=== PATIENT | female | born 1975 | race Caucasian/White ===

== ENCOUNTER 2020-06-30 08:10 | Day surgery (SDC) | payer OTHER, SELFPAY ==
--- NOTE | 2020-06-29 09:13 | P.CONAN_ITS ---
Documented by User: Shea Guevara 06/29/20 09:14 HPI - Anesthesia Eval Consult details Narrative: 44yo F for Colonoscopy [facility] Past Medical History Medical History Asthma Back pain Bronchitis Elevated cholesterol GERD (gastroesophageal reflux disease) Lab test positive for detection of COVID-19 virus Surgical History Surgical History H/O colonoscopy Social History Social History (Updated 06/23/20 @ 14:43 by Yenifer Soliz) Smoking Status: Never smoker Use of substances other than those prescribed or required for medical reasons: No Advance Directives: No Advance Directives Information Provided: Yes Recently lost weight without trying: No Meds Allergies Allergy/AdvReac Type Severity Reaction Status Date / Time No Known Allergies Allergy Verified 06/23/20 14:42 Home Medications Medication Instructions Recorded Confirmed Type budesonide-formoterol [Symbicort] 2 puff INHALATION BID 06/23/20 06/23/20 History Exam Exam Date and Time: June 29, 2020912 Pertinent Lab Results Pertinent Lab Results: Laboratory Tests 03/02/20 03/02/20 09:14 09:14 WBC 10.1 Hgb 12.5 Hct 39.0 Plt Count 273 Sodium 138 Potassium 4.5 Chloride 102 BUN 12 Creatinine 0.76 Assessment and Plan Assessment Anesthesia Assessment: Chart Reviewed Documented by User: Paulo Valdovinos MD 06/30/20 09:14 [facility] Past Medical History Medical History Asthma Back pain Bronchitis Elevated cholesterol GERD (gastroesophageal reflux disease) Lab test positive for detection of COVID-19 virus Surgical History Surgical History H/O colonoscopy Social History Social History (Updated 06/23/20 @ 14:43 by Yenifer Soliz) Smoking Status: Never smoker Use of substances other than those prescribed or required for medical reasons: No Advance Directives: No Advance Directives Information Provided: Yes Recently lost weight without trying: No Meds Allergies Allergy/AdvReac Type Severity Reaction Status Date / Time No Known Allergies Allergy Verified 06/23/20 14:42 Home Medications Medication Instructions Recorded Confirmed Type budesonide-formoterol [Symbicort] 2 puff INHALATION BID 06/23/20 06/23/20 History Exam Airway Mallampati Class: II TM Dist: >3cm Neck ROM: Full Loose/Missing/Broken Teeth: No Heart: rrr Lungs: nl Other: ao Assessment and Plan Assessment Anesthesia Assessment: Anesthesia Plan Discussed and Chart Reviewed Final Anesthetic Review ASA Class: II Final Preanesthetic Review: No Changes in Pt Med Stat, Meds/Allgs Chart Reviewed, Consent Obtained/Reviewed and Anes Risks/Benef Reviewed Patient Risk: Low Procedure Risk: Low Anesthetic Plan Anesthetic Plan: MAC: Disposition: Standard PACU
[2020-06-30 08:55] VITALS: BMI 25.8
--- NOTE | 2020-06-30 09:00 | MHC.SHP ---
Pre-Procedural Eval Section B Chief Complaint: Adenoma of Large Intestine, Hx of Colon Cancer Details of Present Illness: mother with CRC Relevant Family History (Specify if Yes): Yes Relevant Social History: None Present Medications: see Short Stay Collaborative assessment Medical History: Significant History (asthma, HLP, goiter, ) History of Previous Operations: Relevant previous surgery/procedure and date(s) (colonoscopy) Allergies: Allergies Allergy/AdvReac Type Severity Reaction Status Date / Time No Known Allergies Allergy Verified 06/23/20 14:42 Review of Systems Sugical H&P ROS: Negative: Constitution, Cardiovascular, Respiratory, Neurological, Psychiatric, Hem-Onc, Allergic/Immunologic, Gastrointestinal, Genitourinary, Musculoskeletal, Integumentary, Endocrine and Eyes/Ears/Nose/Throat Exam Surgical H&P Exam: Normal: HEENT, Normal: Heart, Normal: Lungs, Normal: Extremities, Normal: Abdomen, Normal: Skin and Normal: Neurological Plan Diagnosis/Plan: Unchanged Patient has been examined and remains a candidate for the planned procedure
[2020-06-30 09:06] VITALS: BP 110/69; PULSE 101; RESP 16; TEMP 36.7; O2SAT 99
--- NOTE | 2020-06-30 09:09 | PM.OP ---
Brief Operative Note Date of Service: 06/30/20 Pre-op diagnosis: FH CRC and polyps Post-op diagnosis: same Procedure: see op note Surgeon: Maulik Andino MD Anesthesia: MAC Estimated blood loss (mL): 0 Condition: stable Disposition: PACU
--- NOTE | 2020-06-30 09:10 | P.OP_ITS ---
Operative Note Operative Note Date of Service: 06/30/20 Narrative: Operative Information Procedure Description: Colonoscopy COLONOSCOPY Instrument: Olympus variable stiffness pediatric scope 190L Colonoscopy Monitoring: Vital signs and clinical assessment, continuous EKG monitoring, Pulse oximetry, Carbon Dioxide monitoring and blood pressure monitoring were done throughout the procedure. Colon withdrawal time was 9 minutes. Procedure: The patient was placed in the left lateral decubitis position and pre-procedure medications were administered. After a digital rectal examination of the ano-rectum, the video colonoscope was inserted into the rectum and advanced through the colon to the cecum/TI. The colonoscope was slowly withdrawn in a retrograde panoramic fashion and the colon mucosa was carefully examined including a retroflexed view of the rectum. Findings and interventions are described below. Procedure Difficulty: easy Findings: Terminal Ileum-normal Cecum:normal Ascending Colon: normal, few diverticula seen Transverse Colon -normal Descending Colon:normal Sigmoid Colon: normal Rectum: Retroflexion with small internal hemorrhoids, grade I Anorectum - normal Colon preparation: [place] Bowel Preparation Scale Right colon; 3 Transverse colon: 3 Left colon; 3 (0 = Unprepared colon segment with mucosa not seen due to solid stool that cannot be cleared. 1 = Portion of mucosa of the colon segment seen, but other areas of the colon segment not well seen due to staining, residual stool and/or opaque liquid. 2 = Minor amount of residual staining, small fragments of stool and/or opaque liquid, but mucosa of colon segment seen well. 3 = Entire mucosa of colon segment seen well with no residual staining, small fragments of stool or opaque liquid) Impression and Post Procedure Diagnosis: diverticulosis internal hemorrhoids Plan: High fiber diet leaflet Avoid straining at stool, epsom salts and sitz bath, anusol supps or cream Repeat Colonoscopy in 5 years or earlier if clinically indicated Above findings were reviewed with the patient and relevant handouts were provided if indicated.
[2020-06-30 09:11] LABS: UPreg QC Valid YES; Urine Pregnancy NEGATIVE (NEGATIVE)
[2020-06-30] MEDS: Lactated Ringers 1,000 ML 100 ML IVCONT (09:13)
--- NOTE | 2020-06-30 09:19 | PC.NURSE ---
patient took her own inhaler per md espinal. lungs clear
[2020-06-30 09:57] VITALS: BP 114/65; PULSE 86; RESP 16; TEMP 36.2; O2SAT 97
[2020-06-30 10:13] VITALS: BP 122/73; PULSE 78; RESP 16; TEMP 36.3; O2SAT 100
== END 2020-06-30 10:35 | disposition home or self-care (01) ==
PROVIDERS: Nurse Practitioner; PCP Internal Medicine; Visit Provider Internal Medicine Gastroenterology
PROC: 0DJD8ZZ Inspection of Lower Intestinal Tract, Via Natural or Artificial Opening Endoscopic (ICD-10-PCS; CPT 45378; principal; 2020-06-30 09:30)
DX: Z12.11 Encounter for screening for malignant neoplasm of colon (principal); Z86.010 Personal history of colon polyps; Z80.0 Family history of malignant neoplasm of digestive organs; K57.30 Diverticulosis of large intestine without perforation or abscess without bleeding; K64.0 First degree hemorrhoids; K21.9 Gastro-esophageal reflux disease without esophagitis; J45.909 Unspecified asthma, uncomplicated; E78.5 Hyperlipidemia, unspecified; E04.2 Nontoxic multinodular goiter; Z79.51 Long term (current) use of inhaled steroids
CPT/HCPCS: 45378; 81025

== ENCOUNTER → 2020-07-11 12:26 | Outpatient (BNVA) | payer OTHER, SELFPAY | PROVIDERS: PCP Internal Medicine; Referring Provider Internal Medicine; Visit Provider Physician Assistant | DX: Z76.89 Persons encountering health services in other specified circumstances (principal) ==

== ENCOUNTER 2020-08-11 07:02 | Outpatient (REF) | payer OTHER, SELFPAY ==
[2020-08-11 07:21] LABS: COVID-19 Test Negative (Negative); IDNOW Serial# 55D5AD1C
== END 2020-08-11 07:03 | disposition home or self-care (01) ==
LOC: HO.EMPCOV 07:02
PROVIDERS: PCP Internal Medicine; Visit Provider Internal Medicine
DX: Z20.828 Contact with and (suspected) exposure to other viral communicable diseases (principal)
CPT/HCPCS: 87635; C9803

== ENCOUNTER 2020-09-22 09:42 | Outpatient (REF) | payer OTHER, SELFPAY ==
[2020-09-22 10:02] LABS: Hematocrit 39.7 % (37-47); Hemoglobin 13.2 g/dl (12.0-16.0); Mean Corpuscular HGB Conc 33.2 g/dl (31.0-35.0); Mean Corpuscular Hemoglobin 30.1 pg (27.0-33.0); Mean Corpuscular Volume 90.4 fL (80-98); Mean Platelet Volume 9.5 fL (9.4-12.3); Platelet Count 310 X10*3/uL (160-400); Red Blood Count 4.39 X10*6/uL (4.20-5.50); Red Cell Distribution Width 12.6 % (11.0-16.0); White Blood Count 9.2 X10*3/uL (4.8-10.8)
[2020-09-22 10:56] LABS: Alanine Aminotransferase 18 U/L (0-31); Albumin Level 4.3 g/dL (3.5-5.0); Alkaline Phosphatase 84 U/L (39-117); Anion Gap 14 (12-20); Aspartate Amino Transferase 19 U/L (5-31); Bilirubin Total 0.5 mg/dL (0.0-1.0); Blood Urea Nitrogen 10 mg/dL (9-16); Calcium 9.5 mg/dL (8.4-10.2); Carbon Dioxide 24 mmol/L (22-29); Chloride 106 mmol/L (96-108); Cholesterol 249 mg/dL; Estimated Glomerular Filt Rate > 60; Glucose Fasting 96 mg/dL (60-99); HDL Cholesterol 60 mg/dL; LDL Cholesterol Calculated 174 mg/dl; Potassium 4.3 mmol/L (3.3-5.1); Sodium 140 mmol/L (135-145); Total Protein 7.6 g/dL (6.5-8.0); Triglycerides 77 mg/dL
[2020-09-22 11:17] LABS: Thyroid Stimulating Hormone 3.26 uIU/mL (0.32-4.0)
[2020-09-22 12:57] LABS: Glucose Urine UA NEG (NEG); Leukocyte Esterase Urine 1+ (NEG); Nitrite Urine NEG (NEG); Urine Blood NEG (NEG); Urine Ketones 5 MG/DL (NEG); Urine Protein NEG (NEG-TRACE)
[2020-09-22 13:05] LABS: Appearance Urine HAZY; Color Urine YELLOW
[2020-09-22 13:34] LABS: Bacteria Urine 2+ /LPF; RBC Urine 0-2 /HPF (0); Squamous Epithelial Cell Urine 4+ /LPF
== END 2020-09-22 09:43 | disposition home or self-care (01) ==
LOC: HO.10HDL 09:42
PROVIDERS: Visit Provider Internal Medicine
DX: Z00.00 Encounter for general adult medical examination without abnormal findings (principal)
CPT/HCPCS: 36415; 80053; 80061; 81001; 81003; 84443; 85027

== ENCOUNTER 2020-10-10 08:43 | Outpatient (REF) | payer OTHER, SELFPAY ==
[2020-10-10 09:08] LABS: COVID-19 Test Negative (Negative)
== END 2020-10-10 08:44 | disposition home or self-care (01) ==
LOC: HO.EMPCOV 08:43
PROVIDERS: Visit Provider Internal Medicine
DX: Z20.822 Contact with and (suspected) exposure to COVID-19 (principal)
CPT/HCPCS: 36415; 87635; C9803

== ENCOUNTER 2020-11-09 14:09 | Outpatient (REF) | payer OTHER, SELFPAY ==
[2020-11-09 14:27] LABS: COVID-19 Test Negative (Negative); IDNOW Serial# 55D5AD1C
== END 2020-11-09 14:10 | disposition home or self-care (01) ==
LOC: HO.LAB 14:09
PROVIDERS: Visit Provider Internal Medicine
DX: Z20.822 Contact with and (suspected) exposure to COVID-19 (principal)
CPT/HCPCS: 36415; 87635; C9803

== ENCOUNTER 2020-11-11 08:02 | Outpatient (REF) | payer OTHER, SELFPAY ==
[2020-11-11 10:48] LABS: MANUAL DIFF FLAG NO
[2020-11-11 11:05] LABS: Basophils Absolute Auto 0.1 X10*3/uL (0.0-0.2); Basophils Percent Auto 0.5 % (0-2); Eosinophils Absolute Auto 0.3 X10*3/uL (0.0-0.4); Eosinophils Percent Auto 3.1 % (0-4); Hematocrit 37.7 % (37-47); Hemoglobin 12.2 g/dl (12.0-16.0); Imm Gran Abs Auto 0.05 X10*3/uL (0.00-0.03); Imm Gran Pct Auto 0.5 % (0.0-0.4); Lymphocytes Absolute Auto 1.7 X10*3/uL (1.2-4.9); Lymphocytes Percent Auto 18.9 % (20-40); Mean Corpuscular HGB Conc 32.4 g/dl (31.0-35.0); Mean Corpuscular Hemoglobin 30.2 pg (27.0-33.0); Mean Corpuscular Volume 93.3 fL (80-98); Mean Platelet Volume 10.3 fL (9.4-12.3); Monocytes Absolute Auto 0.6 X10*3/uL (0.1-1.2); Monocytes Percent Auto 6.2 % (2-11); Neutrophils Absolute Auto 6.5 X10*3/uL (2.0-8.3); Neutrophils Percent Auto 70.8 % (45-73); Platelet Count 299 X10*3/uL (160-400); Red Blood Count 4.04 X10*6/uL (4.20-5.50); Red Cell Distribution Width 12.6 % (11.0-16.0); White Blood Count 9.2 X10*3/uL (4.8-10.8)
[2020-11-11 11:29] LABS: Alanine Aminotransferase 25 U/L (0-31); Alkaline Phosphatase 77 U/L (39-117); Anion Gap 12 (12-20); Aspartate Amino Transferase 18 U/L (5-31); Bilirubin Total 0.2 mg/dL (0.0-1.0); Blood Urea Nitrogen 11 mg/dL (9-16); Calcium 8.9 mg/dL (8.4-10.2); Carbon Dioxide 27 mmol/L (22-29); Chloride 105 mmol/L (96-108); Cholesterol 198 mg/dL; Estimated Glomerular Filt Rate > 60; Glucose Fasting 101 mg/dL (60-99); HDL Cholesterol 60 mg/dL; LDL Cholesterol Calculated 126 mg/dl; Potassium 4.2 mmol/L (3.3-5.1); Sodium 140 mmol/L (135-145); Triglycerides 63 mg/dL
== END 2020-11-11 08:03 | disposition home or self-care (01) ==
LOC: HO.10HDL 08:02
PROVIDERS: Absent Provider Dermatology; Visit Provider Internal Medicine
DX: Z00.00 Encounter for general adult medical examination without abnormal findings (principal); E78.5 Hyperlipidemia, unspecified; R21 Rash and other nonspecific skin eruption; Z79.899 Other long term (current) drug therapy
CPT/HCPCS: 36415; 80053; 80061; 85025

== ENCOUNTER 2020-11-29 07:40 | Outpatient (REF) | payer OTHER, SELFPAY ==
[2020-11-29 08:06] LABS: COVID-19 Test Negative (Negative)
== END 2020-11-29 07:41 | disposition home or self-care (01) ==
LOC: HO.EMPCOV 07:40
PROVIDERS: Visit Provider Internal Medicine
DX: Z20.822 Contact with and (suspected) exposure to COVID-19 (principal)
CPT/HCPCS: 36415; 87635; C9803

== ENCOUNTER 2020-12-28 09:47 | Outpatient (REF) | payer OTHER, SELFPAY ==
--- NOTE | ~2020-12-28 | MM_ITS ---
EXAMINATION: MM SCREENING DIGITAL BREAST TOMOSYNTHESIS, BILATERAL CLINICAL INFORMATION: Screening. Asymptomatic. The lifetime risk of breast cancer based on the Tyrer-Cuzick Model is 12.9%. COMPARISON: Mammography: October 01, 2019 and studies dating back to March 07, 2016 TECHNIQUE: Digital breast tomosynthesis is performed in both the craniocaudal and mediolateral oblique views along with computer-aided detection (CAD). Synthesized 2D images are generated from the tomosynthesis. FINDINGS: The breasts are heterogeneously dense, which may obscure small masses (ACR BI-RADS breast composition Category c). No new abnormal dominant mass is identified. The calcifications within the upper outer aspect of the right breast are seen to change configuration between craniocaudal and mediolateral oblique projections consistent with milk of calcium within microcysts. No new region of architectural distortion appreciated. MM/MM tomosynthesis screening BI IMPRESSION: There are no significant changes from prior study. ASSESSMENT: BI-RADS 1: Negative RECOMMENDATION: Routine annual mammography screening. This patient's information was entered into a reminder system with a target due date for their next mammogram.
== END 2020-12-28 09:48 | disposition home or self-care (01) ==
LOC: HO.MAMMO 09:47
PROVIDERS: PCP Internal Medicine; Visit Provider Internal Medicine
DX: Z12.31 Encounter for screening mammogram for malignant neoplasm of breast (principal)
CPT/HCPCS: 77063; 77067

== ENCOUNTER 2021-02-01 17:00 | Outpatient (RCR) | payer OTHER, SELFPAY ==
--- NOTE | 2020-12-05 08:39 | MHC.PT.EP ---
[facility] [place] Office [place] Office [place] Office [address] [phone] F: [phone] F: [phone] F: [phone] F: [phone] Physical Therapy Plan of Care Date of Evaluation: Date of Surgery: Diagnosis: L side sciatica Assessment: Pt is a 44 y/o female referred to PT for eval and treat of L leg sciatica who presents with signs and Sx consistent with lumbopelvic dysfunction resulting in decreased tolerance for walking long distances, sitting tasks for duration as well as squatting activities secondary to decreased hip and core strength, decreased trunk ROM as well as decreased posture, increased tissue tension, pelvic asymmetry and pain. Pt is deemed an appropriate candidate to receive skilled PT in order to address her physical limitations to improve her functional ability. Frequency and Duration: The patient will be seen 2 x/ wk x 5 wks. Short Term Goals: In 1 week: initiate HEP with evidence of compliance. In 3 weeks: abolish LE radicular Sx. Fpc Goals: In 5 weeks: I with HEP. In 5 weeks; Pt will be able to tolerate sitting tasks for preferred duration with managed Sx. In 5 weeks: Pt will report no longer painful of squatting tasks. Treatment Plan: Modalities to reduce pain, spasms and effusion. Manual therapy to restore motion and function. Therapeutic exercise to improve strength and flexibility. Neuromuscular re-education for posture and balance. Therapeutic activities to return to functional activities of daily living. Electronically signed by: Sylvester Fox PT. Please sign and return to therapist. Thank you for your referral.
== END 2021-04-21 14:04 | disposition home or self-care (01) ==
LOC: HO.PTCHIC 17:00
PROVIDERS: PCP Internal Medicine; Visit Provider Internal Medicine
DX: M54.30 Sciatica, unspecified side (principal)
CPT/HCPCS: 97110; 97140; 97161

== ENCOUNTER 2021-02-14 17:20 | Outpatient (REF) | payer OTHER, SELFPAY | END 2021-02-14 17:21 | disposition home or self-care (01) | LOC: HO.LAB 17:20 | PROVIDERS: Visit Provider Nurse Practitioner Family | DX: N39.0 Urinary tract infection, site not specified (principal) | CPT/HCPCS: 87086 ==

== ENCOUNTER 2021-05-18 07:20 | Outpatient (REF) | payer OTHER, SELFPAY ==
[2021-05-18 11:53] LABS: Alanine Aminotransferase 51 U/L (0-31); Albumin Level 4.1 g/dL (3.5-5.0); Alkaline Phosphatase 87 U/L (39-117); Anion Gap 14 (12-20); Aspartate Amino Transferase 32 U/L (5-31); Bilirubin Total 0.5 mg/dL (0.0-1.0); Blood Urea Nitrogen 9 mg/dL (9-16); Carbon Dioxide 22 mmol/L (22-29); Chloride 107 mmol/L (96-108); Cholesterol 207 mg/dL; Estimated Glomerular Filt Rate > 60; Glucose Fasting 111 mg/dL (60-99); HDL Cholesterol 61 mg/dL; LDL Cholesterol Calculated 125 mg/dl; Potassium 3.9 mmol/L (3.3-5.1); Sodium 139 mmol/L (135-145); Total Protein 7.3 g/dL (6.5-8.0); Triglycerides 105 mg/dL
[2021-05-18 11:55] LABS: Hematocrit 40.4 % (37-47); Hemoglobin 13.1 g/dl (12.0-16.0); Mean Corpuscular HGB Conc 32.4 g/dl (31.0-35.0); Mean Corpuscular Hemoglobin 30.2 pg (27.0-33.0); Mean Corpuscular Volume 93.1 fL (80-98); Mean Platelet Volume 10.7 fL (9.4-12.3); Platelet Count 340 X10*3/uL (160-400); Red Blood Count 4.34 X10*6/uL (4.20-5.50); Red Cell Distribution Width 13.1 % (11.0-16.0); White Blood Count 8.8 X10*3/uL (4.8-10.8)
[2021-05-18 12:13] LABS: TSH reflex Free T4 2.75 uIU/mL (0.32-4.0)
== END 2021-05-18 07:21 | disposition home or self-care (01) ==
LOC: HO.HMGCLDS 07:20
PROVIDERS: PCP Internal Medicine; Visit Provider Internal Medicine
DX: Z00.00 Encounter for general adult medical examination without abnormal findings (principal); E78.5 Hyperlipidemia, unspecified; M54.30 Sciatica, unspecified side
CPT/HCPCS: 36415; 80053; 80061; 84443; 85027

== ENCOUNTER 2021-10-03 07:25 | Outpatient (REF) | payer OTHER, SELFPAY ==
[2021-10-03 11:42] LABS: Appearance Urine TURBID; Color Urine YELLOW; Glucose Urine UA NEG (NEG); Leukocyte Esterase Urine NEG (NEG); Nitrite Urine NEG (NEG); PH 5.5 (5.0-8.0); Specific Gravity - Urine >= 1.030 (1.005-1.025); Urine Blood 2+ (NEG); Urine Ketones NEG (NEG); Urine Protein NEG (NEG-TRACE)
[2021-10-03 11:45] LABS: Hematocrit 38.6 % (37.0-47.0); Hemoglobin 12.6 g/dl (12.0-16.0); Mean Corpuscular HGB Conc 32.6 g/dl (31.0-35.0); Mean Corpuscular Hemoglobin 30.7 pg (27.0-33.0); Mean Corpuscular Volume 93.9 fL (80.0-98.0); Mean Platelet Volume 10.5 fL (9.4-12.3); Platelet Count 327 X10*3/uL (160-400); Red Blood Count 4.11 X10*6/uL (4.20-5.50); Red Cell Distribution Width 12.7 % (11.0-16.0); White Blood Count 7.8 X10*3/uL (4.8-10.8)
[2021-10-03 12:02] LABS: Amorphous Sediment Urine 4+ /LPF
[2021-10-03 12:04] LABS: RBC Urine 0 /HPF (0); Squamous Epithelial Cell Urine 3+ /LPF; WBC Urine 0-2 /HPF (0-4)
[2021-10-03 12:06] LABS: Mucus Urine 1+ /LPF
[2021-10-03 12:22] LABS: TSH reflex Free T4 3.07 uIU/mL (0.32-4.0)
[2021-10-03 12:32] LABS: Alanine Aminotransferase 21 U/L (0-31); Albumin Level 4.1 g/dL (3.5-5.0); Alkaline Phosphatase 74 U/L (39-117); Anion Gap 13 (12-20); Aspartate Amino Transferase 18 U/L (5-31); Bilirubin Total 0.4 mg/dL (0.0-1.0); Blood Urea Nitrogen 8 mg/dL (9-16); Calcium 8.7 mg/dL (8.4-10.2); Carbon Dioxide 23 mmol/L (22-29); Chloride 109 mmol/L (96-108); Cholesterol 237 mg/dL; Estimated Glomerular Filt Rate > 60; Glucose Fasting 98 mg/dL (60-99); HDL Cholesterol 59 mg/dL; LDL Cholesterol Calculated 157 mg/dl; Potassium 3.7 mmol/L (3.3-5.1); Sodium 141 mmol/L (135-145); Total Protein 7.3 g/dL (6.5-8.0); Triglycerides 109 mg/dL
== END 2021-10-03 07:26 | disposition home or self-care (01) ==
LOC: HO.HMGCLDS 07:25
PROVIDERS: Visit Provider Internal Medicine
DX: Z00.00 Encounter for general adult medical examination without abnormal findings (principal); E78.5 Hyperlipidemia, unspecified
CPT/HCPCS: 36415; 80053; 80061; 81001; 84443; 85027

== ENCOUNTER 2021-10-30 10:06 | Outpatient (REF) | payer OTHER, SELFPAY ==
--- NOTE | ~2021-10-30 | US_ITS ---
EXAMINATION: US THYROID CLINICAL INFORMATION: Nontoxic single thyroid nodule. COMPARISON: None TECHNIQUE: Linear transducer grayscale and color Doppler examination with attention to the region of the thyroid. FINDINGS: SIZE: Measurements of the thyroid lobes and nodules are given in sagittal, anteroposterior and transverse dimensions respectively. Right Thyroid Lobe: 6.47 x 3.78 x 3.64 cm, volume 46.6 mL. Parenchyma: The gland echotexture is heterogeneous. Thyroid vascularity is normal. Left Thyroid Lobe: 5.89 x 3.01 x 1.19 cm, volume 11.03 mL. Parenchyma: The gland echotexture is heterogeneous. Thyroid vascularity is normal. Isthmus: 1.1 cm in maximum AP dimension. Estimated total number of nodules greater than or equal to 1 cm: 6 to 10. Senior Cost Estimator nodules are described as follows: 1. Location: Right superior. Size: 3.1 x 2.0 x 2.4 cm, volume 7.77 mL. Nodule characteristics: Composition: Solid/almost completely solid (2). Echogenicity: Hypoechoic (2). Shape: Not taller than wide (0). Margins: Smooth (0). Echogenic Foci: Punctate echogenic foci (3). ACR TI-RADS total points: 7 ACR TI-RADS category: 5 2. Location: Right superior. Size: 1.6 x 1.7 x 1.6 cm, volume 2.2 mL. Nodule characteristics: Composition: Solid/almost completely solid (2). Echogenicity: Hypoechoic (2). Shape: Taller than wide (3). Margins: Smooth (0). Echogenic Foci: Punctate echogenic foci (3). ACR TI-RADS total points: 10 ACR TI-RADS category: 5 3. Location: Right mid. Size: 4.0 x 2.2 x 2.4 cm, volume 10.7 mL. Nodule characteristics: Composition: Solid/almost completely solid (2). Echogenicity: Isoechoic (1). Shape: Not taller than wide (0). Margins: Smooth (0). Echogenic Foci: Punctate echogenic foci (3). ACR TI-RADS total points: 6 ACR TI-RADS category: 4 4. Location: Right inferior. Size: 2.4 x 2.2 x 3.2 cm, volume 8.9 mL. Nodule characteristics: Composition: Mixed cystic and solid (1). Echogenicity: Isoechoic (1). Shape: Not taller than wide (0). Margins: Smooth (0). Echogenic Foci: None (0). ACR TI-RADS total points: 2 ACR TI-RADS category: 2 5. Location: Left inferior. Size: 3.5 x 2.2 x 2.0 cm, volume 7.9 mL. Nodule characteristics: Composition: Solid/almost completely solid (2). Echogenicity: Hypoechoic (2). Shape: Taller than wide (3). Margins: Smooth (0). Echogenic Foci: Punctate echogenic foci (3). ACR TI-RADS total points: 10 ACR TI-RADS category: 5 NODES: No lymphadenopathy is seen in the tissue surrounding the thyroid gland. US/US thyroid IMPRESSION: Enlarged heterogeneous thyroid gland. Multiple bilateral thyroid nodules. 4 of the 5 above nodules meet the TI RADS criteria for fine-needle aspiration. Comparison with outside imaging recommended. ACR TI-RADS RECOMMENDATION REFERENCE: Ultrasound-guided fine-needle aspiration, followup ultrasound, no further follow up. * TR1 (0 point) and TR 2 (2 points): No FNA or follow up * TR3 (3 points): FNA if more than or equal to 2.5 cm in maximum dimension, followup ultrasound in 1, 3 and 5 years if 1.5 to 2.4 cm in maximum dimension. * TR4 (4-6 points): FNA if more than or equal to 1.5 cm in maximum dimension, followup ultrasound in 1, 2, 3 and 5 years if 1 to 1.4 cm in maximum dimension. * TR5 (more than or equal to 7 points): FNA if more than or equal to 1 cm in maximum dimension, followup ultrasound every year for 5 years if 0.5 to 0.9 cm in maximum dimension. * TR3, TR4 or TR5 nodules that are below the size threshold for follow up receive no follow up.
== END 2021-10-30 10:07 | disposition home or self-care (01) ==
LOC: HO.HMGCX 10:06
PROVIDERS: PCP Internal Medicine; Visit Provider Internal Medicine
DX: E04.1 Nontoxic single thyroid nodule (principal)
CPT/HCPCS: 76536

== ENCOUNTER 2022-01-20 10:29 | Outpatient (REF) | payer OTHER, SELFPAY ==
--- NOTE | ~2022-01-20 | MM_ITS ---
EXAMINATION: MM SCREENING DIGITAL BREAST TOMOSYNTHESIS, BILATERAL CLINICAL INFORMATION: Screening. Asymptomatic. The lifetime risk of breast cancer based on the Tyrer-Cuzick Model is 11%. COMPARISON: Mammography: 12/28/2020, 10/09/2019, 10/06/2019, 09/04/2018; outside mammography 03/13/2017 ([facility]); ultrasound left breast 10/09/2019. TECHNIQUE: Digital breast tomosynthesis is performed in both the craniocaudal and mediolateral oblique views along with computer-aided detection (CAD). Synthesized 2D images are generated from the tomosynthesis. FINDINGS: The breasts are heterogeneously dense, which may obscure small masses (ACR BI-RADS breast composition Category c). Parenchymal pattern is similar to prior studies. No developing density or architectural abnormality. There are no significant masses, abnormal calcifications, or other abnormalities. Skin contours are smooth. No significant changes. MM/MM tomosynthesis screening BI IMPRESSION: No mammographic evidence of malignancy. ASSESSMENT: BI-RADS 1: Negative RECOMMENDATION: Routine annual mammography screening. This patient's information was entered into a reminder system with a target due date for their next mammogram.
== END 2022-01-20 10:30 | disposition home or self-care (01) ==
LOC: HO.MAMMO 10:29
PROVIDERS: PCP Internal Medicine; Visit Provider Internal Medicine
DX: Z12.31 Encounter for screening mammogram for malignant neoplasm of breast (principal)
CPT/HCPCS: 77063; 77067

== ENCOUNTER 2022-02-20 08:43 | Outpatient (REF) | payer OTHER, SELFPAY ==
[2022-02-20 09:17] LABS: Binax Internal Control QC Valid; Binax Now Covid-19 Ag Negative (Negative); Binax Performed by: HO.BONILM
== END 2022-02-20 08:44 | disposition home or self-care (01) ==
LOC: HO.HMGCLDS 08:43
PROVIDERS: Visit Provider Physician Assistant
DX: J02.9 Acute pharyngitis, unspecified (principal); Z20.822 Contact with and (suspected) exposure to COVID-19
CPT/HCPCS: 87811; C9803

== ENCOUNTER 2022-04-25 07:33 | Outpatient (REF) | payer OTHER, SELFPAY ==
[2022-04-25 12:09] LABS: Free T4 (Free Thyroxine) 0.84 ng/dL (0.71-1.85); Thyroid Stimulating Hormone 1.83 uIU/mL (0.32-4.0); Vitamin D 25-OH Total 33.2 ng/mL (>30)
== END 2022-04-25 07:34 | disposition home or self-care (01) ==
LOC: HO.HMGCLDS 07:33
PROVIDERS: PCP Internal Medicine; Visit Provider Internal Medicine
DX: E04.2 Nontoxic multinodular goiter (principal); E55.9 Vitamin D deficiency, unspecified
CPT/HCPCS: 36415; 82306; 84439; 84443

== ENCOUNTER 2022-06-28 07:38 | Outpatient (REF) | payer OTHER, SELFPAY ==
--- NOTE | 2022-06-28 08:49 | PM.OP ---
Brief Operative Note Date of Service: 06/28/22 Pre-op diagnosis: Multinodular Thyroid Procedure: This is doctor Porsha Lucas. This is an ultrasound-guided fine-needle aspiration report. Date of Examination: Indication: Multinodular Thyroid Porcedure: Procedure was explained to the patient. Alternatives, the risk and benefits were discussed. Written consent was obtained. A time-out was also obtained. After sterile preparation, fine-needle aspiration of a right mid pole 4.0 cm thyroid nodule was performed using direct ultrasound guidance to confirm accurate needle placement. Three aspirations were made using 27 gauge needles. Samples were submitted for cytology. One pass was dedicated for [employer] sequencing graduate engineer testing. Our attention was then turned to the Isthmus. Fine-needle aspiration of an isthmus 1.8 cm thyroid nodule was performed using direct ultrasound guidance to confirm accurate needle placement. Four aspirations were made using 27 gauge needles. An additional 2 aspirations were made using 25 guage needles. Samples were submitted for cytology. One pass was dedicated for [employer] Gene sequencing graduate engineer testing. The patient tolerated the procedure well. Aftercare instructions were provided. Impression: Uncomplicated fine needle aspiration biopsy of a right mid pole 4.0 cm thyroid nodule, and an isthmus 1.8 cm thyroid nodule under ultrasound guidance. Surgeon: Porsha Lucas, DO Was an Director Mobile used for this Procedure?: No Estimated blood loss (mL): 0
[2022-06-28] MEDS: Lidocaine HCl 1 % MPF 5 ML VIAL SUBCUT (09:47)
== END 2022-06-28 07:39 | disposition home or self-care (01) ==
LOC: HO.US 07:38
PROVIDERS: Visit Provider Internal Medicine
DX: E04.2 Nontoxic multinodular goiter (principal)
CPT/HCPCS: 10005; 10006; 88172; 88173; 88177; 88305

== ENCOUNTER 2022-07-11 15:52 | Outpatient (REF) | payer OTHER, SELFPAY ==
[2022-07-11 17:04] LABS: Albumin Level 4.3 g/dL (3.5-5.0); Phosphorus 3.5 mg/dL (2.7-4.5)
[2022-07-11 17:26] LABS: Vitamin D 25-OH Total 23.9 ng/mL (>30)
[2022-07-13 13:44] LABS: Calcium (PTHI) 9.4 mg/dL (8.6-10.2); PTHI 26 pg/mL (16-77)
== END 2022-07-11 15:53 | disposition home or self-care (01) ==
LOC: HO.LAB 15:52
PROVIDERS: PCP Internal Medicine; Visit Provider Internal Medicine
DX: E55.9 Vitamin D deficiency, unspecified (principal)
CPT/HCPCS: 36415; 82040; 82306; 83970; 84100

== ENCOUNTER 2022-07-20 07:11 | Outpatient (REF) | payer OTHER, SELFPAY ==
--- NOTE | ~2022-07-20 | CT_ITS ---
EXAMINATION: CT SOFT TISSUE NECK WITHOUT CONTRAST CLINICAL INFORMATION: Nontoxic multinodular goiter. COMPARISON: None TECHNIQUE: Helical imaging was performed in the axial plane with generation of coronal and sagittal reformatted images. This CT examination was performed using dose optimization techniques as appropriate, variously including the following: *Automated exposure control *Adjustment of mA and/or kV according to patient size (this includes techniques or standardized protocols for targeted exams where dose is matched to indication/reason for exam; i.e. extremities or head) *Use of iterative reconstruction technique DLP: 446 mGy-cm FINDINGS: There is a large heterogeneous goiter with scattered calcifications arising from the right lobe of the thyroid gland extending inferior to the mediastinum. The mediastinal component is only partially imaged but measures up to 6.8 x 6.5 cm. There is leftward displacement and mild flattening of the tracheal lumen without significant tracheal compression. Enlarged nodular components are also seen arising inferiorly from the left lobe of the thyroid gland extending into the upper mediastinum. The vasculature appears largely displaced around the goiter. The pharyngeal contours appear normal. No laryngeal lesion is seen. The parotid and submandibular glands appear normal. There is is an enlarged elongated left level 2A lymph node measuring 2.0 cm. There is an enlarged left level 5A lymph node measuring 1.3 cm and a top normal right level 5A lymph node measuring 9 mm. The imaged portions of the upper lungs are clear. Mild degenerative changes are seen in the spine. There is no acute intracranial abnormality. Prominent but nonenlarged lymph nodes are seen along the bilateral cervical stations. No calcified lymph nodes are seen. CT/CT soft tissue neck wo IV con IMPRESSION: 1. Large heterogeneous goiter arising from the right lobe of the thyroid gland extending inferior to the mediastinum. The mediastinal component is only partially imaged but measures up to 6.8 x 6.5 cm. There is leftward displacement and mild flattening of the tracheal lumen without significant tracheal compression. Dedicated chest CT is recommended to evaluate the inferior extent of the goiter. Consider obtaining the chest CT with contrast to evaluate the relationship of the goiter to the major intrathoracic vasculature. 2. Enlarged left level 2A and left level 5A lymph nodes measuring up to 2.0 cm and top normal right level 5A lymph node.
== END 2022-07-20 07:12 | disposition home or self-care (01) ==
LOC: HO.CT 07:11
PROVIDERS: PCP Internal Medicine; Visit Provider Internal Medicine
DX: E04.2 Nontoxic multinodular goiter (principal)
CPT/HCPCS: 70490

== ENCOUNTER 2022-10-06 11:01 | Outpatient (REF) | payer OTHER, SELFPAY ==
[2022-10-06 13:46] LABS: Vitamin D 25-OH Total 32.1 ng/mL (>30)
== END 2022-10-06 11:02 | disposition home or self-care (01) ==
LOC: HO.HMGCLDS 11:01
PROVIDERS: PCP Internal Medicine; Visit Provider Internal Medicine
DX: E55.9 Vitamin D deficiency, unspecified (principal)
CPT/HCPCS: 36415; 82306

== ENCOUNTER 2022-10-08 08:12 | Outpatient (REF) | payer OTHER, SELFPAY ==
[2022-10-08 11:58] LABS: MANUAL DIFF FLAG NO
[2022-10-08 12:15] LABS: Basophils Absolute Auto 0.1 X10*3/uL (0.0-0.2); Eosinophils Absolute Auto 0.3 X10*3/uL (0.0-0.4); Eosinophils Percent Auto 3.3 % (0-4); Hematocrit 38.6 % (37.0-47.0); Hemoglobin 12.6 g/dl (12.0-16.0); Imm Gran Abs Auto 0.03 X10*3/uL (0.00-0.03); Imm Gran Pct Auto 0.4 % (0.0-0.4); Lymphocytes Percent Auto 24.9 % (20-40); Mean Corpuscular HGB Conc 32.6 g/dl (31.0-35.0); Mean Corpuscular Hemoglobin 29.6 pg (27.0-33.0); Mean Corpuscular Volume 90.8 fL (80.0-98.0); Mean Platelet Volume 9.9 fL (9.4-12.3); Monocytes Absolute Auto 0.6 X10*3/uL (0.1-1.2); Monocytes Percent Auto 7.1 % (2-11); Neutrophils Percent Auto 63.3 % (45-73); Platelet Count 344 X10*3/uL (160-400); Red Blood Count 4.25 X10*6/uL (4.20-5.50); Red Cell Distribution Width 12.8 % (11.0-16.0); White Blood Count 7.9 X10*3/uL (4.8-10.8)
[2022-10-08 12:26] LABS: Alanine Aminotransferase 24 U/L (0-31); Albumin Level 4.2 g/dL (3.5-5.0); Alkaline Phosphatase 82 U/L (39-117); Anion Gap 9 (12-20); Aspartate Amino Transferase 19 U/L (5-31); Bilirubin Total 0.5 mg/dL (0.0-1.0); Blood Urea Nitrogen 8 mg/dL (9-16); Calcium 9.4 mg/dL (8.4-10.2); Carbon Dioxide 30 mmol/L (22-29); Chloride 105 mmol/L (96-108); Cholesterol 219 mg/dL; Estimated Glomerular Filt Rate > 60; Glucose Fasting 98 mg/dL (60-99); HDL Cholesterol 56 mg/dL; LDL Cholesterol Calculated 134 mg/dl; Sodium 140 mmol/L (135-145); Total Protein 7.4 g/dL (6.5-8.0); Triglycerides 148 mg/dL
== END 2022-10-08 08:13 | disposition home or self-care (01) ==
LOC: HO.HMGCLDS 08:12
PROVIDERS: PCP Internal Medicine; Visit Provider Internal Medicine
DX: Z00.00 Encounter for general adult medical examination without abnormal findings (principal); E78.5 Hyperlipidemia, unspecified
CPT/HCPCS: 36415; 80053; 80061; 85025

== ENCOUNTER 2022-11-07 06:40 | Outpatient (REF) | payer OTHER, SELFPAY ==
[2022-11-07 12:16] LABS: Blood Urea Nitrogen 10 mg/dL (9-16); Estimated Glomerular Filt Rate > 60
== END 2022-11-07 06:41 | disposition home or self-care (01) ==
LOC: HO.HMGCLDS 06:40
PROVIDERS: PCP Internal Medicine; Visit Provider Surgery
DX: E04.9 Nontoxic goiter, unspecified (principal)
CPT/HCPCS: 36415; 82565; 84520

== ENCOUNTER 2022-11-07 14:19 | Outpatient (REF) | payer OTHER, SELFPAY ==
--- NOTE | ~2022-11-07 | CT_ITS ---
EXAMINATION: CT CHEST WITH CONTRAST CLINICAL INFORMATION: Large mediastinal goiter. COMPARISON: CT soft tissue of 07/20/2022. TECHNIQUE: Multidetector volumetric CT imaging of the chest was obtained after the administration of 65 mL of Omnipaque 350 intravenous contrast without immediate adverse reactions. Axial MIP volume rendering provided. Sagittal and coronal reformatted images were obtained. This CT examination was performed using dose optimization techniques as appropriate, variously including the following: *Automated exposure control *Adjustment of mA and/or kV according to patient size (this includes techniques or standardized protocols for targeted exams where dose is matched to indication/reason for exam; i.e. extremities or head) *Use of iterative reconstruction technique DLP: 121 mGy-cm FINDINGS: LUNGS: Central airways patent. The trachea and esophagus are pushed to the left from mass impression of the substernal thyroid. No confluent parenchymal disease identified. No bronchial wall thickening or bronchiectasis is seen. No emphysematous changes noted. No suspicious lung nodules identified. MEDIASTINUM: Heart normal size. No pericardial effusion. No thoracic aortic aneurysm. No mediastinal or hilar lymphadenopathy is seen. No coronary artery calcification is appreciated. The right lobe of the thyroid gland is very large with substernal component/behind the superior vena cava. The left thyroid lobe contains a substernal component which lies directly behind the sternum both contain low density portions as well as calcification. The left thyroid lobe substernal component measures approximately 4.6 x 2.4 x 4.2 cm in size. This causes some mass impression upon the left innominate vein between it and the aortic arch. The right thyroid lobe substernal component measures approximately 6.9 x 6.6 x 8.1 cm in size. PLEURA: There is no pleural effusion. No pleural mass or thickening. AXILLA: No lymphadenopathy. UPPER ABDOMEN: Unremarkable. OSSEOUS STRUCTURES: Unremarkable. CT/CT chest w IV con IMPRESSION: Right and left thyroid lobe substernal components as described above. Fleischner guidelines were followed.
[2022-11-07] MEDS: iohexoL 350 MG/ML 100 ML INFUS..BTL IV (15:03)
== END 2022-11-07 14:20 | disposition home or self-care (01) ==
LOC: HO.CT 14:19
PROVIDERS: Visit Provider Surgery
DX: E04.2 Nontoxic multinodular goiter (principal)
CPT/HCPCS: 71260; Q9967

== ENCOUNTER 2023-01-26 09:43 | Outpatient (REF) | payer OTHER, SELFPAY ==
--- NOTE | ~2023-01-26 | MM_ITS ---
EXAMINATION: MM SCREENING DIGITAL BREAST TOMOSYNTHESIS, BILATERAL CLINICAL INFORMATION: Screening. Asymptomatic. The lifetime risk of breast cancer based on the Tyrer-Cuzick Model is 11%. COMPARISON: Mammography: 01/20/2022, 12/28/2020, 10/09/2019, 10/06/2019 TECHNIQUE: Digital breast tomosynthesis is performed in both the craniocaudal and mediolateral oblique views along with computer-aided detection (CAD). Synthesized 2D images are generated from the tomosynthesis. FINDINGS: The breasts are heterogeneously dense, which may obscure small masses (ACR BI-RADS breast composition Category c). There is fibrocystic parenchymal pattern in the upper outer quadrants and bordering on extremely dense. There is no significant mass or architectural abnormality or developing density. Again, there are calcifications in the upper outer quadrants, some with layering on the right. The axilla and skin contours are unremarkable. There are no significant changes from prior studies. MM/MM tomosynthesis screening BI IMPRESSION: No significant changes from prior exams. ASSESSMENT: BI-RADS 2: Benign RECOMMENDATION: Routine annual mammography screening. This patient's information was entered into a reminder system with a target due date for their next mammogram.
== END 2023-01-26 09:44 | disposition home or self-care (01) ==
LOC: HO.MAMMO 09:43
PROVIDERS: PCP Internal Medicine; Visit Provider Internal Medicine
DX: Z12.31 Encounter for screening mammogram for malignant neoplasm of breast (principal)
CPT/HCPCS: 77063; 77067

== ENCOUNTER 2023-05-14 11:52 | Outpatient (REF) | payer OTHER, SELFPAY ==
[2023-05-14 14:15] LABS: Free T4 (Free Thyroxine) 0.85 ng/dL (0.71-1.85); Thyroid Stimulating Hormone 4.96 uIU/mL (0.32-4.0)
== END 2023-05-14 11:53 | disposition home or self-care (01) ==
LOC: HO.HMGCLDS 11:52
PROVIDERS: PCP Internal Medicine; Visit Provider Internal Medicine Endocrinology, Diabetes & Metabolism
DX: E04.2 Nontoxic multinodular goiter (principal)
CPT/HCPCS: 36415; 84439; 84443

== ENCOUNTER 2023-05-15 07:51 | Outpatient (AMB) | payer OTHER, SELFPAY ==
--- NOTE | 2023-05-15 07:53 | MHC.OFFVIS ---
Intake Vital Signs 05/15/23 07:54 Height 5 ft 6 in Weight 162 lb 14.746 oz BMI 26.3 BP 104/68 Blood Pressure Location Rt brachial Position Sitting Pulse 89 Pulse Source Pulse Oximeter Intake Visit Reasons: F/U NTMNG Intake Note: Patient present for NTMNG follow up visit. Previously followed by Dr. Andino. Otolaryngology Surgeon Required: No Accompanied by: Self / Same As Patient Allergies No Known Allergies Allergy (Verified 05/15/23 07:55) HPI HPI Comments History of Present Illness Details 46 YO F who is seen in F/U for a NTMNG. The patient last saw Dr. Andino on 07/11/2022 Was initially diagnosed with multinodular thyroid many years ago, she does not recall exactly when. She did previously see an Trade Show Specialist at [place]. She states she had a biopsy over 9 years ago, but does not recall which nodules were biopsied. She underwent FNA biopsy 06/28/2022 by ca of her RMP 4.0 cm and her Isthmus 1.8 cm thyroid nodules, both with benign ([place] category II) cytology. She was noted at the time of biopsy to have a large heterogenous goiter, and was complaining of compressive symptoms. Discussion was held regarding surgical thyroidectomy to alleviate her symptoms. Currently does complain of dysphagia as well as hoarseness of voice. She underwent a right thyroidectomy a left nodulectomy by Dr. Back in 04/2023. Pathology report is benign Current TSH level slightly elevated Laboratory Tests 04/25/22 07:39 25-OH Vitamin D To suzy 33.2 TSH 1.83 Free T4 0.84 C/O fatigue PFSH Medical History (Updated 08/14/22 @ 09:05 by Daniel Martinez MD) Thyroid nodule Rash Annual physical exam Hyperlipidemia Hemorrhoids Lab test positive for detection of COVID-19 virus Back pain GERD (gastroesophageal reflux disease) Elevated cholesterol Bronchitis Asthma Surgical History Hx of partial thyroidectomy Hx of ultrasound guided needle biopsy H/O colonoscopy Family History Father No problems noted. 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 Left lobe is about the presence of any palpable nodules Assessment & Plan Assessment & Plan (1) Multinodular thyroid: Code(s): E04.2 - Nontoxic multinodular goiter Plan: Is a 47-year-old white female with history multinodular goiter status post right lobectomy a left nodulectomy with benign pathology. TSH is slightly elevated. Plan is to start levothyroxine 75 mcg. Recheck TSH and free T4 in 6 weeks time. Orders: Orders Free T4 (Free Thyroxine) 6 Weeks E04.2 - Nontoxic multinodular goiter Thyroid Stimulating Hormone 6 Weeks E04.2 - Nontoxic multinodular goiter Medications: New levothyroxine 75 mcg PO DAILY 30 tabs 5RF Coding Level of Care Code Est Pt Level 3 (00291) Diagnoses Multinodular thyroid E04.2
[2023-05-15 07:54] VITALS: BP 104/68; PULSE 89; BMI 26.3
== END 2023-05-15 08:18 | disposition home or self-care (01) ==
PROVIDERS: PCP Internal Medicine; Visit Provider Internal Medicine Endocrinology, Diabetes & Metabolism
DX: E04.2 Nontoxic multinodular goiter (principal)
CPT/HCPCS: 99213

== ENCOUNTER → 2023-05-15 07:51 | Outpatient (BNVA) | payer OTHER, SELFPAY | PROVIDERS: PCP Internal Medicine; Visit Provider Internal Medicine Endocrinology, Diabetes & Metabolism ==

== ENCOUNTER 2023-06-11 07:00 | Outpatient (REF) | payer OTHER, SELFPAY ==
[2023-06-11 12:02] LABS: Free T4 (Free Thyroxine) 1.15 ng/dL (0.71-1.85); Thyroid Stimulating Hormone 0.91 uIU/mL (0.32-4.0)
[2023-06-13 05:19] LABS: Follicle Stimulating Hormone 24.7 mIU/mL
[2023-06-16 00:53] LABS: Estradiol Free 1.43 pg/mL; Estradiol, Ultrasensitive 83 pg/mL
[2023-06-20 16:49] LABS: Progesterone 2.2 ng/mL
== END 2023-06-11 07:01 | disposition home or self-care (01) ==
LOC: HO.HMGCLDS 07:00
PROVIDERS: Absent Provider Advanced Practice Midwife; PCP Internal Medicine; Visit Provider Internal Medicine Endocrinology, Diabetes & Metabolism
DX: E04.2 Nontoxic multinodular goiter (principal); N95.1 Menopausal and female climacteric states
CPT/HCPCS: 36415; 82670; 82681; 83001; 84144; 84439; 84443

== ENCOUNTER 2023-08-27 14:55 | Outpatient (AMB) | payer OTHER, SELFPAY ==
[2023-08-27 14:57] VITALS: BP 106/62; PULSE 72; BMI 27.6
--- NOTE | 2023-08-27 14:57 | A.OFFVIS_ITS ---
Intake Vital Signs 08/27/23 14:57 Height 5 ft 6 in Weight 171 lb 4.787 oz BMI 27.6 BP 106/62 Blood Pressure Location Lt brachial Position Sitting Pulse 72 Pulse Source Pulse Oximeter Intake Visit Reasons: F/U NTMNG-confirmed Intake Note: Patient present today for NTMNG follow up visit. 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 Was initially diagnosed with multinodular thyroid many years ago, she does not recall exactly when. She did previously see an Information Technology Auditor at [place]. She states she had a biopsy over 9 years ago, but does not recall which nodules were biopsied. She underwent FNA biopsy 06/28/2022 by tx of her RMP 4.0 cm and her Isthmus 1.8 cm thyroid nodules, both with benign ([place] category II) cytology. She was noted at the time of biopsy to have a large heterogenous goiter, and was complaining of compressive symptoms. Discussion was held regarding surgical thyroidectomy to alleviate her symptoms. Currently does complain of dysphagia as well as hoarseness of voice. She underwent a right thyroidectomy a left nodulectomy by Dr. Back in 04/2023. Pathology report is benign Current TSH level slightly elevated Laboratory Tests 04/25/22 07:39 25-OH Vitamin D To suzy 33.2 TSH 1.83 Free T4 0.84 on 75 mcg levothyroxine PFS Medical History (Updated 08/14/22 @ 09:05 by Daniel Martinez MD) Thyroid nodule Rash Annual physical exam Hyperlipidemia Hemorrhoids Lab test positive for detection of COVID-19 virus Back pain GERD (gastroesophageal reflux disease) Elevated cholesterol Bronchitis Asthma Surgical History Hx of partial thyroidectomy Hx of ultrasound guided needle biopsy H/O colonoscopy Family History Father No problems noted. 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 Left lobe is about the presence of any palpable nodules Assessment & Plan Assessment & Plan (1) Multinodular thyroid: Code(s): E04.2 - Nontoxic multinodular goiter Plan: Is a 47-year-old white female status post right lobectomy and left nodule lobectomy with subsequent hypothyroidism currently replaced on 75 mcg levothyroxine. She appears to be clinically biochemically euthyroid Plan is to TSH and free T4. We will also obtain another thyroid ultrasound. Assuming ultrasound is unrevealing the patient remains biochemically euthyroid, will see patient back in 6 months' time I could consider at that point sending back to primary care provider Orders: Orders US thyroid Today E04.2 - Nontoxic multinodular goiter Free T4 (Free Thyroxine) Today E04.2 - Nontoxic multinodular goiter Thyroid Stimulating Hormone Today E04.2 - Nontoxic multinodular goiter Coding Level of Care Code Est Pt Level 3 (64349) Diagnoses Multinodular thyroid E04.2
== END 2023-08-27 15:13 | disposition home or self-care (01) ==
PROVIDERS: PCP Internal Medicine; Visit Provider Internal Medicine Endocrinology, Diabetes & Metabolism
DX: E04.2 Nontoxic multinodular goiter (principal)
CPT/HCPCS: 99213

== ENCOUNTER → 2023-08-27 14:55 | Outpatient (BNVA) | payer OTHER, SELFPAY | PROVIDERS: PCP Internal Medicine; Visit Provider Internal Medicine Endocrinology, Diabetes & Metabolism ==

== ENCOUNTER 2023-09-26 14:30 | Outpatient (AMB) | payer OTHER, SELFPAY ==
[2023-09-26 14:35] VITALS: BP 124/74; PULSE 99; TEMP 36.6; O2SAT 98; BMI 26.6
--- NOTE | 2023-09-26 14:35 | MHC.OFFWIV ---
Intake Vital Signs 09/26/23 14:35 Height 5 ft 6 in Weight 165 lb BMI 26.6 BP 124/74 Blood Pressure Location Lt brachial Position Sitting Pulse 99 Pulse Source Pulse Oximeter Temp 97.8 F Temp Source Temporal Artery Scan Pulse Oximetry (%) 98 Oxygen Delivery Method Room Air Intake Visit Reasons: EST/congestion, SOB (lobby masked) Intake Note: pt is here today for congestion SOB started 1 week ago Patient Tobacco Use Status: Former Tobacco user Allergies No Known Allergies Allergy (Verified 09/26/23 14:35) Do you need a note to return to daycare/school/sports/work: Yes HPI HPI Comments History of Present Illness Details 47 y/o female patient presents to walk in clinic with c/o URI symptoms. Reports that symptoms started 1 week ago. Reports sore throat, chest and nasal congestion. Denies fevers, chills, nausea or vomiting. She just returned from a Cruise with family. Reports good appetite. [facility] Medical History (Updated 09/26/23 @ 14:49 by Blanca Kc NP) Thyroid nodule Rash Annual physical exam Hyperlipidemia Hemorrhoids Lab test positive for detection of COVID-19 virus Back pain GERD (gastroesophageal reflux disease) Elevated cholesterol Bronchitis Asthma Surgical History Hx of partial thyroidectomy Hx of ultrasound guided needle biopsy H/O colonoscopy Family History Father No problems noted. 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 Current occupational exposures/hazards: No Cognitive needs: No Hearing needs: No Vision needs: No Physical Exam Vital Signs: Last Vital Signs Temp 97.8 F 09/26/23 14:35 Pulse 99 09/26/23 14:35 BP 124/74 09/26/23 14:35 Pulse Ox 98 09/26/23 14:35 Oxygen Delivery Method Room Air 09/26/23 14:35 BMI result Body Mass Index 26.6 Const General: comfortable and no acute distress HEENT Head: Yes normocephalic Ears: external ears normal and TM's normal bilaterally General nose exam: Normal external nose present, Abnormal mucous membranes and turbinates present boggy and erythematous and Nasal discharge present Face and sinus: Yes sinuses nontender Mouth: oropharynx normal and moist mucous membranes Throat: Yes postnasal drainage and Yes other (White patches back of throat) Resp Effort & Inspection: normal respiratory effort Auscultation: clear to auscultation bilaterally Cardio Rate: regular rate Rhythm: regular rhythm Assessment & Plan Assessment & Plan (1) Upper respiratory tract infection: Code(s): J06.9 - Acute upper respiratory infection, unspecified Qualifiers: URI type: acute nasopharyngitis (common cold) Qualified Code(s): J00 - Acute nasopharyngitis [common cold] Plan: - Warm fluids with honey - OTC cold/cough remedies - Take Abx as prescribed - Rest - Acetaminophen for pain relief. Orders: Orders SARS-CoV2/FLU/RSV Today J06.9 - Acute upper respiratory infection, unspecified Medications: New pseudoephedrine-guaifenesin 60-600 mg ER (Mucinex D) 1 tab PO Q12H PRN 20 tabs 0RF cold symptoms J06.9 - Acute upper respiratory infection, unspecified amoxicillin 500 mg PO BID 20 caps 0RF 10 days J06.9 - Acute upper respiratory infection, unspecified acetaminophen 1,000 mg (2 x 500 mg) PO Q6H PRN 30 caps 0RF pain (scale score 4-6) J06.9 - Acute upper respiratory infection, unspecified Coding Level of Care Code Est Pt Level 3 (67871) Diagnoses Acute nasopharyngitis J00 URI type: acute nasopharyngitis (common cold) Time Spent (min) 15
== END 2023-09-26 15:38 | disposition home or self-care (01) ==
PROVIDERS: PCP Internal Medicine; Visit Provider Nurse Practitioner Family
DX: J00 Acute nasopharyngitis [common cold] (principal)
CPT/HCPCS: 99213

== ENCOUNTER 2023-09-26 16:07 | Outpatient (REF) | payer OTHER, SELFPAY ==
[2023-09-26 17:35] LABS: Influenza A PCR NEGATIVE (Negative); Influenza B PCR NEGATIVE (Negative); Resp Syncy Virus RNA Qual PCR NEGATIVE (Negative); SARS COV2 PCR INHOUSE NEGATIVE (Negative)
== END 2023-09-26 16:08 | disposition home or self-care (01) ==
LOC: HO.HMGCLNP 16:07
PROVIDERS: Visit Provider Nurse Practitioner Family
DX: Z11.52 Encounter for screening for COVID-19 (principal); Z20.822 Contact with and (suspected) exposure to COVID-19; R05.9 Cough, unspecified
CPT/HCPCS: 0241U

== ENCOUNTER 2023-10-02 11:58 | Outpatient (REF) | payer OTHER, SELFPAY ==
--- NOTE | ~2023-10-02 | US_ITS ---
EXAMINATION: US THYROID CLINICAL INFORMATION: Nontoxic multinodular goiter. Right thyroidectomy. COMPARISON: CT soft tissue neck 07/20/2022. Ultrasound-guided thyroid biopsy 06/28/2022. Thyroid ultrasound 10/30/2021. TECHNIQUE: Linear transducer grayscale and color Doppler examination with attention to the region of the thyroid. FINDINGS: SIZE: Measurements of the solitary left lobe and nodules are given in sagittal, anteroposterior and transverse dimensions respectively. Right Thyroid Lobe: Surgically absent. Left Thyroid Lobe: 4.9 x 2.9 x 1.3 cm, volume 9.8 mL. Previously 5.9 x 3.0 x 1.2 cm, volume 11 mL. Parenchyma: The gland echotexture is heterogeneous. Thyroid vascularity is normal. Isthmus: 0.3 cm in maximum AP dimension. Previously 1.1 cm. Estimated total number of nodules greater than or equal to 1 cm: 1. Machine Filler Shredder nodules are described as follows: 1. Location: Left lower pole. Size: 2.8 x 2.1 x 1.8 cm, volume 5.5 mL. Previously: 3.5 x 2.2 x 2.0 cm, volume 7.9 mL. Nodule characteristics: Composition: Solid (2). Echogenicity: Hypoechoic (2). Shape: Taller than wide (3). Margins: Smooth (0). Echogenic Foci: None (0). ACR TI-RADS total points: 7 Previous: 10 ACR TI-RADS category: 5 Previous: 5 Significant change in size (>/= 20% in 2 dimensions and minimal increase of 2 mm or 50% or greater increase in volume): Decreased. Change in features: No. Change in ACR TI-RADS risk category: No. RIGHT THYROIDECTOMY BED: No recurrent mass. NODES: No lymphadenopathy is seen in the tissue surrounding the thyroid gland. US/US thyroid IMPRESSION: Status post right-sided thyroidectomy. Nodule in the left lobe of the thyroid has decreased in size when compared to the prior study. Based upon its current size and TI-RADS classification, biopsy would be indicated as this is category 5 and over 1 cm in size. Please correlate with past histories of biopsies and pathologic reports. ACR TI-RADS RECOMMENDATION REFERENCE: Ultrasound-guided fine-needle aspiration, follow up ultrasound, no further follow up. * TR1 (0 point) and TR2 (2 points): No FNA or follow up. * TR3 (3 points): FNA if more than or equal to 2.5 cm in maximum dimension, follow up ultrasound in 1, 3 and 5 years if 1.5 to 2.4 cm in maximum dimension. * TR4 (4-6 points): FNA if more than or equal to 1.5 cm in maximum dimension, follow up ultrasound in 1, 2, 3 and 5 years if 1 to 1.4 cm in maximum dimension. * TR5 (more than or equal to 7 points): FNA if more than or equal to 1 cm in maximum dimension, follow up ultrasound every year for 5 years if 0.5 to 0.9 cm in maximum dimension. * TR3, TR4 or TR5 nodules that are below the size threshold for follow up receive no follow up.
== END 2023-10-02 11:59 | disposition home or self-care (01) ==
LOC: HO.HMGCX 11:58
PROVIDERS: PCP Internal Medicine; Visit Provider Internal Medicine Endocrinology, Diabetes & Metabolism
DX: E04.2 Nontoxic multinodular goiter (principal)
CPT/HCPCS: 76536

== ENCOUNTER 2023-10-05 11:41 | Outpatient (REF) | payer OTHER, SELFPAY ==
[2023-10-05 13:41] LABS: MANUAL DIFF FLAG NO
[2023-10-05 13:46] LABS: Basophils Percent Auto 0.4 % (0-2); Eosinophils Absolute Auto 0.2 X10*3/uL (0.0-0.4); Eosinophils Percent Auto 1.8 % (0-4); Hematocrit 37.3 % (37.0-47.0); Hemoglobin 12.3 g/dl (12.0-16.0); Imm Gran Abs Auto 0.06 X10*3/uL (0.00-0.03); Imm Gran Pct Auto 0.5 % (0.0-0.4); Lymphocytes Absolute Auto 2.5 X10*3/uL (1.2-4.9); Lymphocytes Percent Auto 22.1 % (20-40); Mean Corpuscular Hemoglobin 28.7 pg (27.0-33.0); Mean Corpuscular Volume 86.9 fL (80.0-98.0); Mean Platelet Volume 9.7 fL (9.4-12.3); Monocytes Absolute Auto 0.7 X10*3/uL (0.1-1.2); Monocytes Percent Auto 6.2 % (2-11); Neutrophils Absolute Auto 7.7 x10*3/uL (2.0-8.3); Platelet Count 394 X10*3/uL (160-400); Red Blood Count 4.29 X10*6/uL (4.20-5.50); Red Cell Distribution Width 14.4 % (11.0-16.0); White Blood Count 11.2 X10*3/uL (4.8-10.8)
[2023-10-05 14:05] LABS: Alanine Aminotransferase 21 U/L (0-31); Albumin Level 3.9 g/dL (3.5-5.0); Alkaline Phosphatase 86 U/L (39-117); Anion Gap 13 (12-20); Aspartate Amino Transferase 20 U/L (5-31); Bilirubin Total 0.4 mg/dL (0.0-1.0); Blood Urea Nitrogen 7 mg/dL (9-16); Calcium 9.2 mg/dL (8.4-10.2); Carbon Dioxide 23 mmol/L (22-29); Chloride 109 mmol/L (96-108); Estimated Glomerular Filt Rate > 60; Glucose Fasting 90 mg/dL (60-99); Lipase 26 U/L (8-78); Potassium 3.8 mmol/L (3.3-5.1); Sodium 141 mmol/L (135-145); Total Protein 7.9 g/dL (6.5-8.0)
[2023-10-05 14:19] LABS: Free T4 (Free Thyroxine) 1.07 ng/dL (0.71-1.85)
[2023-10-05 14:24] LABS: TSH reflex Free T4 0.77 uIU/mL (0.32-4.0); Thyroid Stimulating Hormone 0.77 uIU/mL (0.32-4.0); Vitamin D 25-OH Total 43.4 ng/mL (>30)
== END 2023-10-05 11:42 | disposition home or self-care (01) ==
LOC: HO.HMGCLDS 11:41
PROVIDERS: PCP Internal Medicine; Referring Provider Internal Medicine Endocrinology, Diabetes & Metabolism; Visit Provider Internal Medicine
DX: Z00.00 Encounter for general adult medical examination without abnormal findings (principal); E78.5 Hyperlipidemia, unspecified; E55.9 Vitamin D deficiency, unspecified; E04.2 Nontoxic multinodular goiter
CPT/HCPCS: 36415; 80053; 82306; 83690; 84439; 84443; 85025

== ENCOUNTER 2023-10-09 07:30 | Outpatient (AMB) | payer OTHER, SELFPAY ==
--- NOTE | 2023-10-09 07:40 | MHC.PC.OV ---
Vital Signs 10/09/23 07:42 Height 5 ft 6 in Weight 165 lb BMI 26.6 BP 100/70 Blood Pressure Location Lt brachial Position Sitting Pulse 80 Pulse Source Pulse Oximeter Pulse Oximetry (%) 99 Oxygen Delivery Method Room Air Intake Visit Reasons: Annual Physical Intake Note: Pt is here today for her PE Allergies No Known Allergies Allergy (Verified 10/09/23 07:40) Medication List - Last Reconciled 10/09/23 by Mikaela Connell MD acetaminophen 1,000 mg (2 x 500 mg) PO Q6H PRN albuterol sulfate 90 mcg/actuation 2 inhalations inhalation QID PRN cholecalciferol (vitamin D3) 50 mcg PO DAILY ibuprofen 600 mg PO Q8H PRN levothyroxine 75 mcg PO DAILY pravastatin 40 mg PO BEDTIME pseudoephedrine-guaifenesin 60-600 mg ER (Mucinex D) 1 tab PO Q12H PRN Tobacco use date assessed: 10/09/23 Dental Screening Dental Screen Date: 10/09/23 Did you have a dental visit in the last 12 months?: No Was dental information given to patient?: Patient has dentist HPI Annual Physical HPI Details Patient presents for a physical. Hypothyroidism and hyperlipidemia stable on current medications. [facility] Medical History (Updated 10/09/23 @ 16:32 by Mikaela Connell MD) Rash Annual physical exam Hyperlipidemia Hemorrhoids Lab test positive for detection of COVID-19 virus Back pain GERD (gastroesophageal reflux disease) Elevated cholesterol Bronchitis Asthma Surgical History Hx of partial thyroidectomy Hx of ultrasound guided needle biopsy H/O colonoscopy Family History Father No problems noted. 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 1. Little interest or pleasure in doing things: not at all 2. Feeling down, depressed, or hopeless: not at all 3. Trouble falling or staying asleep, or sleeping too much: not at all 4. Feeling tired or having little energy: not at all 5. Poor appetite or overeating: not at all 6. Feeling bad about yourself - or that you are a failure or have let yourself or your family down: not at all 7. Trouble concentrating on things, such as reading the newspaper or watching television: not at all 8. Moving or speaking so slowly that other people could have noticed. Or the opposite - being so fidgety or restless that you have been moving around a lot more than usual: not at all 9. Thoughts that you would be better off or of hurting yourself in some way: not at all Total score: 0 Depression Screening Interpretation: Negative Depression Screening Done: Yes Source: Developed by Drs. Edy Chua, Kaitlin Ferguson, Isaias Farfan and colleagues, with an educational mitchell from [employer]. Thrive Questionnaire Date Thrive assessed: 10/09/23 I am a: Patient What is your living situation today?: I have a steady place to live Within the past 12 months, did the food you bought not last and you didn't have the money to get more?: Never true Within the past 12 months, did you worry whether your food would run out before you got money to buy more?: Never true Do you have trouble paying for medicines?: No Do you have trouble paying your heating and electricity bill?: No Do you have trouble taking care of your child, family member or friend?: No Do you have trouble with day-to-day activities such as bathing, preparing meals, shopping, managing finances, etc.?: No Are you currently unemployed and looking for a job?: No Are you interested in more education?: No THRIVE Score: 0 AUDIT C Alcohol Use Questionnaire (AUDIT-C) 1. How often do you have a drink containing alcohol?: 2-4 times a month 2. How many drinks containing alcohol do you have on a typical day when you are drinking?: 1 or 2 3. How often do you have six or more drinks on one occasion?: Less than monthly Total Score: 3 MARY-7 AMB Questionnaire MARY-7 Date MARY - 7 assessed: 10/09/23 Feeling nervous, anxious, or on edge: 0 = Not at all Not being able to stop or control worryin = Not at all Worrying too much about different things: 0 = Not at all Trouble relaxin = Not at all Being so restless that it is hard to sit still: 0 = Not at all Becoming easily annoyed or irritable: 0 = Not at all Feeling afraid as if something awful might happen: 0 = Not at all Total MARY-7 score (0-4 normal; 5-9 mild; 10-14 moderate; 15-21 severe): 0 Source: Developed by Drs. Edy Chua, Kaitlin Ferguson, Isaias Farfan and colleagues, with an educational mitchell from [employer]. Review of Systems Const All systems reviewed & are unremarkable except as noted in HPI and below Reports no additional complaints Eyes Reports no additional complaints ENT Reports no additional complaints Card Reports no additional complaints Resp Reports no additional complaints GI Reports no additional complaints Reports no additional complaints Physical exam (Primary Care) Vital Signs: Last Vital Signs Pulse 80 10/09/23 07:42 BP 100/70 10/09/23 07:42 Pulse Ox 99 10/09/23 07:42 Oxygen Delivery Method Room Air 10/09/23 07:42 BMI result Body Mass Index 26.6 Tobacco/Smoking Status: Tobacco use Status Tobacco use date assessed 10/09/23 10/09/23 07:47 Patient Tobacco Use Status Former Tobacco user 10/09/23 07:47 e-Cigarette/Vaping Use Never Used 10/09/23 07:47 PHQ-9: PHQ-9 Score PHQ-9: Total score 0 10/09/23 07:50 Depression Screening Interpretation: Negative Thrive Assessment: Date of Thrive Assessment Date Thrive assessed 10/09/23 10/09/23 07:50 Const General: no acute distress HENMT Head: Yes normal to inspection Ears: hearing grossly normal bilaterally Face and sinus: Yes normal facial exam Mouth: Normal oral and palatal mucosa present Throat: Yes posterior oropharynx normal Eyes General: appearance normal, both eyes and all related structures Neck Neck: Yes no lymphadenopathy and Yes supple Resp Effort & Inspection: normal respiratory effort Auscultation: clear to auscultation bilaterally Cardio Rhythm: regular rhythm Heart sounds: S1 normal heart sound present and S2 normal heart sound present GI Inspection: Yes normal to inspection Palpation (GI): Soft to palpation Percussion: Yes normal to percussion Auscultation: normal bowel sounds Assessment and Plan Assessment & Plan (1) Hyperlipidemia: Code(s): E78.5 - Hyperlipidemia, unspecified Plan: Continue low-cholesterol diet and pravastatin, return for fasting blood (2) Annual physical exam: Code(s): Z00.00 - Encounter for general adult medical examination without abnormal findings Plan: Well-balanced diet regular physical activity discussed with the patient, she is due for repeat colonoscopy June 2025 (3) Asthma: Comment: mild , albuterol p.r.n. Code(s): J45.909 - Unspecified asthma, uncomplicated (4) Diverticula of intestine: Comment: history of adenomas on previous colonoscopy, most recent colonoscopy 07/01 Dr. Andino no polyps, recheck 5 yrs Code(s): K57.30 - Diverticulosis of large intestine without perforation or abscess without bleeding (5) Multinodular thyroid: Comment: Status post R partial thyroidectomy and thoracoscopic resection of mediastinal medial and anterior goiter 05/04 , f/u with Endo Code(s): E04.2 - Nontoxic multinodular goiter Plan: Follow-up with endocrinology annually Orders: Orders Lipid Panel 3 Months E78.5 - Hyperlipidemia, unspecified Coding Level of Care Code Est Pt Prev Care 40-64y(32015) Diagnoses Hyperlipidemia E78.5 Annual physical exam Z00.00 Asthma J45.909 Diverticula of intestine K57.30 Multinodular thyroid E04.2
[2023-10-09 07:42] VITALS: BP 100/70; PULSE 80; O2SAT 99; BMI 26.6
== END 2023-10-09 09:14 | disposition home or self-care (01) ==
PROVIDERS: PCP Internal Medicine; Visit Provider Internal Medicine
DX: E78.5 Hyperlipidemia, unspecified (principal); Z00.00 Encounter for general adult medical examination without abnormal findings; J45.909 Unspecified asthma, uncomplicated; K57.30 Diverticulosis of large intestine without perforation or abscess without bleeding; E04.2 Nontoxic multinodular goiter
CPT/HCPCS: 99396

== ENCOUNTER 2024-02-01 09:33 | Outpatient (REF) | payer OTHER, SELFPAY ==
--- NOTE | ~2024-02-01 | MM_ITS ---
EXAMINATION: MM SCREENING DIGITAL BREAST TOMOSYNTHESIS, BILATERAL CLINICAL INFORMATION: Screening. Asymptomatic. COMPARISON: Mammography: This study is compared with prior exams dating back to 2019. TECHNIQUE: Digital breast tomosynthesis is performed in both the craniocaudal and mediolateral oblique views along with computer-aided detection (CAD). Synthesized 2D images are generated from the tomosynthesis. FINDINGS: The breasts are heterogeneously dense, which may obscure small masses (ACR BI-RADS breast composition Category c). There are no significant masses, abnormal calcifications, or other abnormalities. There are benign calcifications in each breast, more numerous in the right breast renewals representative of benign milk of calcium. MM/MM tomosynthesis screening BI IMPRESSION: No mammographic evidence of malignancy. ASSESSMENT: BI-RADS BI-RADS 2 - Benign Findings RECOMMENDATION: Routine annual mammography screening. 1 year F/U This examination should not preclude the clinical evaluation of a suspicious palpable abnormality. This patient's information was entered into a reminder system with a target due date for their next mammogram.
== END 2024-02-01 09:34 | disposition home or self-care (01) ==
LOC: HO.MAMMO 09:33
PROVIDERS: PCP Internal Medicine; Visit Provider Internal Medicine
DX: Z12.31 Encounter for screening mammogram for malignant neoplasm of breast (principal)
CPT/HCPCS: 77063; 77067

== ENCOUNTER → 2024-02-01 09:45 | Outpatient (BNV) | payer OTHER, SELFPAY | PROVIDERS: PCP Internal Medicine; Visit Provider Radiology Diagnostic Radiology | DX: Z12.31 Encounter for screening mammogram for malignant neoplasm of breast (principal) | CPT/HCPCS: 77063; 77067 ==

== ENCOUNTER 2024-02-25 15:48 | Outpatient (AMB) | payer OTHER, SELFPAY ==
--- NOTE | 2024-02-25 15:50 | MHC.OFFVIS ---
Vital Signs 02/25/24 15:51 Height 5 ft 7 in Weight 177 lb 14.609 oz BMI 27.9 BP 116/72 Blood Pressure Location Lt brachial Position Sitting Pulse 62 Pulse Source Pulse Oximeter Intake Visit Reasons: f/u MNG-lvm Intake Note: Patient present today for MNG follow up visit. Load Dropper Required: No Accompanied by: Self / Same As Patient Allergies No Known Allergies Allergy (Verified 02/25/24 15:54) Medication List - Last Reconciled 02/25/24 by Edy Marks MD acetaminophen 1,000 mg (2 x 500 mg) PO Q6H PRN albuterol sulfate 90 mcg/actuation 2 inhalations inhalation QID PRN cholecalciferol (vitamin D3) 50 mcg PO DAILY ibuprofen 600 mg PO Q8H PRN ketoconazole 2% 1 appl topical DAILY levothyroxine 75 mcg PO DAILY pravastatin 40 mg PO BEDTIME pseudoephedrine-guaifenesin 60-600 mg ER (Mucinex D) 1 tab PO Q12H PRN HPI Comments Details: 48 YO F who is seen in F/U for a NTMNG. Was initially diagnosed with multinodular thyroid many years ago, she does not recall exactly when. She did previously see an Director Of Advertising Sales at [facility]. She states she had a biopsy over 9 years ago, but does not recall which nodules were biopsied. She underwent FNA biopsy 06/28/2022 by me of her RMP 4.0 cm and her Isthmus 1.8 cm thyroid nodules, both with benign ([place] category II) cytology. She was noted at the time of biopsy to have a large heterogenous goiter, and was complaining of compressive symptoms. Discussion was held regarding surgical thyroidectomy to alleviate her symptoms. Currently does complain of dysphagia as well as hoarseness of voice. She underwent a right thyroidectomy a left nodulectomy by Dr. Back in 04/2023. Pathology report is benign Current TSH level slightly elevated Laboratory Tests 04/25/22 07:39 25-OH Vitamin D Total 33.2 TSH 1.83 Free T4 0.84 on 75 mcg levothyroxine . Recent thyroid ultrasound showed 1. Location: Left lower pole. Size: 2.8 x 2.1 x 1.8 cm, volume 5.5 mL. Previously: 3.5 x 2.2 x 2.0 cm, volume 7.9 mL. Nodule characteristics: Composition: Solid (2). Echogenicity: Hypoechoic (2). Shape: Taller than wide (3). Margins: Smooth (0). Echogenic Foci: None (0). ACR TI-RADS total points: 7 Previous: 10 ACR TI-RADS category: 5 Previous: 5 Significant change in size (>/= 20% in 2 dimensions and minimal increase of 2 mm or 50% or greater increase in volume): Decreased. Change in features: No. Change in ACR TI-RADS risk category: No. RIGHT THYROIDECTOMY BED: No recurrent mass. NODES: No lymphadenopathy is seen in the tissue surrounding the thyroid gland. US/US thyroid IMPRESSION: Status post right-sided thyroidectomy. Nodule in the left lobe of the thyroid has decreased in size when compared to the prior study. Based upon its current size and TI-RADS classification, biopsy would be indicated as this is category 5 and over 1 cm in size. Please correlate with past histories of biopsies and pathologic reports. [facility] Medical History (Updated 10/09/23 @ 16:32 by Mikaela Connell MD) Rash Annual physical exam Hyperlipidemia Hemorrhoids Lab test positive for detection of COVID-19 virus Back pain GERD (gastroesophageal reflux disease) Elevated cholesterol Bronchitis Asthma Surgical History Hx of partial thyroidectomy Hx of ultrasound guided needle biopsy H/O colonoscopy Family History Father No problems noted. Mother Skin cancer Maternal Grandmother Colon cancer Social History Housing: Condominium Alcohol intake: current Alcohol intake frequency: holidays/special occasions only Patient Tobacco Use Status: Former Tobacco user Years Smoked: 2 yrs e-Cigarette/Vaping Use: Never Used Second Hand Smoke Exposure: No Current occupational status: employed Current occupation: [employer] [place] Current occupational exposures/hazards: No Cognitive needs: No Hearing needs: No Vision needs: Yes Physical Exam Vital Signs: Last Vital Signs Pulse 62 02/25/24 15:51 BP 116/72 02/25/24 15:51 BMI result Body Mass Index 27.9 Const Other: Healing scar status post right lobectomy. Left lobe is about the presence of any palpable nodules Assessment & Plan Assessment & Plan (1) Multinodular thyroid: Comment: Status post R partial thyroidectomy and thoracoscopic resection of mediastinal medial and anterior goiter 05/04 , f/u with Endo Code(s): E04.2 - Nontoxic multinodular goiter Category: Medical Plan: Is a 47-year-old white female status post right lobectomy and left nodule lobectomy with subsequent hypothyroidism currently replaced on 75 mcg levothyroxine. She appears to be clinically euthyroid. Recent thyroid ultrasound showed left lower pole nodule somewhat suspicious characterized Plan is to TSH and free T4. Will have patient follow-up with Dr. Gallego in certified respiratory therapist starting here in March 2024 will has expertise in thyroid ultrasound and biopsy Orders: Orders Free T4 (Free Thyroxine) Today E04.2 - Nontoxic multinodular goiter Thyroid Stimulating Hormone Today E04.2 - Nontoxic multinodular goiter Coding Level of Care Code Est Pt Level 3 (41782) Diagnoses Multinodular thyroid E04.2
[2024-02-25 15:51] VITALS: BP 116/72; PULSE 62; BMI 27.9
== END 2024-02-25 16:15 | disposition home or self-care (01) ==
PROVIDERS: PCP Internal Medicine; Visit Provider Internal Medicine Endocrinology, Diabetes & Metabolism
DX: E04.2 Nontoxic multinodular goiter (principal)
CPT/HCPCS: 99213

== ENCOUNTER → 2024-02-25 15:48 | Outpatient (BNVA) | payer OTHER, SELFPAY | PROVIDERS: PCP Internal Medicine; Visit Provider Internal Medicine Endocrinology, Diabetes & Metabolism ==

== ENCOUNTER 2024-04-08 07:41 | Outpatient (REF) | payer OTHER, SELFPAY ==
[2024-04-08 10:56] LABS: Free T4 (Free Thyroxine) 1.08 ng/dL (0.71-1.85)
== END 2024-04-08 07:42 | disposition home or self-care (01) ==
LOC: HO.HMGCLDS 07:41
PROVIDERS: PCP Internal Medicine; Visit Provider Internal Medicine Endocrinology, Diabetes & Metabolism
DX: E04.2 Nontoxic multinodular goiter (principal)
CPT/HCPCS: 36415; 84439; 84443

== ENCOUNTER 2024-04-27 07:47 | Outpatient (AMB) | payer OTHER, SELFPAY ==
[2024-04-27 07:58] VITALS: BP 116/68; PULSE 82; BMI 27.7
--- NOTE | 2024-04-27 07:58 | A.OFFVIS_ITS ---
Vital Signs 3 04/27/24 07:58 Height 5 ft 7 in Weight 176 lb 9.444 oz BMI 27.7 BP 116/68 Blood Pressure Location Lt brachial Position Sitting Pulse 82 Pulse Source Pulse Oximeter Intake Visit Reasons: MNG/LVM Intake Note: Patient present today for MNG follow up visit. 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 She was previously seeing Dr. Andino, and then saw Dr. Marks most recently in February 2024. HPi from prior visit Was initially diagnosed with multinodular thyroid many years ago, she does not recall exactly when. She did previously see an Vat House Laborer at [place]. She states she had a biopsy over 11 years ago, but does not recall which nodules were biopsied. She underwent FNA biopsy 06/28/[address] Andino of her RMP 4.0 cm and her Isthmus 1.8 cm thyroid nodules, both with benign ([place] category II) cytology. She was noted at the time of biopsy to have a large heterogenous goiter, and was complaining of compressive symptoms. Discussion was held regarding surgical thyroidectomy to alleviate her symptoms. Status post robotic assisted right thoracoscopic resection of middle mediastinal goiter, robotic assisted right thoracoscopic resection of anterior mediastinal goiter with Dr. Nella Back and Dr. Gibson at [facility] 05/04. . Pathology report per chart review was benign on 75 mcg levothyroxine . Taking it appropriately and adherent. Recent thyroid ultrasound 10/05 showed 1. Location: Left lower pole. Size: 2.8 x 2.1 x 1.8 cm, volume 5.5 mL. Previously: 3.5 x 2.2 x 2.0 cm, volume 7.9 mL. Nodule characteristics: Composition: Solid (2). Echogenicity: Hypoechoic (2). Shape: Taller than wide (3). Margins: Smooth (0). Echogenic Foci: None (0). ACR TI-RADS total points: 7 Previous: 10 ACR TI-RADS category: 5 Previous: 5 Significant change in size (>/= 20% in 2 dimensions and minimal increase of 2 mm or 50% or greater increase in volume): Decreased. Change in features: No. Change in ACR TI-RADS risk category: No. RIGHT THYROIDECTOMY BED: No recurrent mass. NODES: No lymphadenopathy is seen in the tissue surrounding the thyroid gland. US/US thyroid IMPRESSION: Status post right-sided thyroidectomy. Nodule in the left lobe of the thyroid has decreased in size when compared to the prior study. Based upon its current size and TI-RADS classification, biopsy would be indicated as this is category 5 and over 1 cm in size. Please correlate with past histories of biopsies and pathologic reports. Patient currently denies heat or cold intolerance, diarrhea or constipation, hair loss, palpitation, anxiety, mood changes, low energy, changes in appearance of eyes or vision changes, tremors, increased diaphoresis or dry skin. ?Periods regular. Feels like she has gained 10 lbs but she has lost some before seems like she just gained it back. Patient currently endorses some difficulty swallowing but not too often. Denies pain on swallowing or voice changes or difficulty breathing. Her friend noticed the left side of her neck is more prominent. Patient denies any history of childhood neck radiation. Denies having ever used lithium, amiodarone or biotin supplements. Patient denies any family history of thyroid cancer or thyroid disease. Review of systems Constitutional: no fevers, chills HEENT: no changes in vision Cardiac: No chest pain, discomfort or palpitations. Pulmonary: No SOB GI:No abdominal pain, no nausea or vomiting, no anorexia, no blood in stool : no burning micturition, dysuria or increase in urinary frequency Physical exam General: sitting comfortably in no acute distress HEENT: normocephalic/atraumatic, moist oral mucosa Neck: supple, palpable 2 cm nodule in the left lobe Cardiac: normal heart sounds Pulm: normal breath sounds B/L, no added breath sounds Abd: not distended, no tenderness Extremities: no edema, no signs of myxedema PFSH Medical History (Updated 04/27/24 @ 08:38 by Luz Elena Gallego MD) Hypothyroidism Rash Annual physical exam Hyperlipidemia Hemorrhoids Lab test positive for detection of COVID-19 virus Back pain GERD (gastroesophageal reflux disease) Elevated cholesterol Bronchitis Asthma Surgical History Hx of partial thyroidectomy Hx of ultrasound guided needle biopsy H/O colonoscopy Family History Father No problems noted. Mother Skin cancer Maternal Grandmother Colon cancer Social History Housing: Condominium Alcohol intake: current Alcohol intake frequency: holidays/special occasions only Patient Tobacco Use Status: Former Tobacco user Years Smoked: 2 yrs e-Cigarette/Vaping Use: Never Used Second Hand Smoke Exposure: No Current occupational status: employed Current occupation: [employer] Current occupational exposures/hazards: No Cognitive needs: No Hearing needs: No Vision needs: Yes Physical Exam Vital Signs: Last Vital Signs Pulse 82 04/27/24 07:58 BP 116/68 04/27/24 07:58 BMI result Body Mass Index 27.7 Results Reviewed Results Reviewed: Laboratory Tests 10/05/23 04/08/24 11:50 07:44 TSH 0.77 1.90 Free T4 1.07 1.08 US THYROID 10/05 I reviewed the images myself which do show the left taller than wide 2.8 cm solid hypoechoic nodule. No punctate echogenic foci. Well- defined.. CLINICAL INFORMATION: Nontoxic multinodular goiter. Right thyroidectomy. COMPARISON: CT soft tissue neck 07/20/2022. Ultrasound-guided thyroid biopsy 06/28/2022. Thyroid ultrasound 10/30/2021. TECHNIQUE: Linear transducer grayscale and color Doppler examination with attention to the region of the thyroid. FINDINGS: SIZE: Measurements of the solitary left lobe and nodules are given in sagittal, anteroposterior and transverse dimensions respectively. Right Thyroid Lobe: Surgically absent. Left Thyroid Lobe: 4.9 x 2.9 x 1.3 cm, volume 9.8 mL. Previously 5.9 x 3.0 x 1.2 cm, volume 11 mL. Parenchyma: The gland echotexture is heterogeneous. Thyroid vascularity is normal. Isthmus: 0.3 cm in maximum AP dimension. Previously 1.1 cm. Estimated total number of nodules greater than or equal to 1 cm: 1. Waxer Tender nodules are described as follows: 1. Location: Left lower pole. Size: 2.8 x 2.1 x 1.8 cm, volume 5.5 mL. Previously: 3.5 x 2.2 x 2.0 cm, volume 7.9 mL. Nodule characteristics: Composition: Solid (2). Echogenicity: Hypoechoic (2). Shape: Taller than wide (3). Margins: Smooth (0). Echogenic Foci: None (0). ACR TI-RADS total points: 7 Previous: 10 ACR TI-RADS category: 5 Previous: 5 Significant change in size (>/= 20% in 2 dimensions and minimal increase of 2 mm or 50% or greater increase in volume): Decreased. Change in features: No. Change in ACR TI-RADS risk category: No. RIGHT THYROIDECTOMY BED: No recurrent mass. NODES: No lymphadenopathy is seen in the tissue surrounding the thyroid gland. US/US thyroid IMPRESSION: Status post right-sided thyroidectomy. Nodule in the left lobe of the thyroid has decreased in size when compared to the prior study. Based upon its current size and TI-RADS classification, biopsy would be indicated as this is category 5 and over 1 cm in size. Please correlate with past histories of biopsies and pathologic reports. Assessment & Plan Assessment & Plan (1) Multinodular thyroid: Comment: Status post R partial thyroidectomy and thoracoscopic resection of mediastinal medial and anterior goiter 05/04 , f/u with Endo Code(s): E04.2 - Nontoxic multinodular goiter Category: Medical Plan: Patient with no family history of thyroid cancer, with no personal history of head or neck radiation, who has a history of nontoxic multinodular goiter for many years with the original biopsies 11 years ago, we do not have records of these which were reportedly benign, who subsequently was seeing Dr. Andino, FNA 1 08/28/[address] Andino of her RMP 4.0 cm and her Isthmus 1.8 cm thyroid nodules, both with benign results, who was having some degree of compressive symptoms, with subsequent imaging revealing large substernal goiter status post robotic assisted right thoracoscopic resection of middle mediastinal goiter, robotic assisted right thoracoscopic resection of anterior mediastinal goiter with Dr. Nella Back and Dr. Gibson at [facility] 05/04. Pathology report per chart review was benign . She has a remnant left lobe of the thyroid with a dominant 2.8 cm nodule, which on most recent ultrasound from September 2023 appears solid, hypoechoic, taller than wide. This is TR 4 category, or based on shape high suspicion category per JABIER which falls into greater than 50% chance of malignancy warranting biopsy. The nodule does not appear very high-risk to me besides is shape, and given that she has had most of her thyroid removed with benign pathology, these are all reassuring. The nodule is also decreased in size. However it does meet criteria for FNA and I discussed with the patient that given that it does harbor significant risk for malignancy given high suspicious shaped, at this time we can proceed with FNA biopsy of the nodule. She does have some degree of compressive symptoms though not very bothersome. TFTs from this year unremarkable. I explained that it is common to have thyroid nodules. About 95% of the time these nodules are benign. However if the nodule is > 1 cm in size or suspicious on ultrasound then a fine need aspiration biopsy is recommended. We discussed that a FNAB involves 4-5 passes with a small gauge needle and material obtained is sent off for cytology.If the cytopathology is benign then the nodule will be followed annually with repeat ultrasounds. However if it is suspicious or malignant, we will need to discuss further management. Indeterminate cytology can be further investigated with repeat FNA, genetic testing or empiric lobectomy. Malignant cytology is managed with either lobectomy or total thyroidectomy. We discussed briefly that thyroid cancer is, in most patients, an indolent disease that does not affect mortality. We will arrange for FNA at next available opening of the left 2.8 cm nodule and patient will follow up with me in clinic thereafter for results and further decision making. Plan: -FNA biopsy of the left 2.8 cm nodule in follow up 1-2 weeks after biopsy in clinic (2) Hypothyroidism: Code(s): E03.9 - Hypothyroidism, unspecified Category: Medical Qualifiers: Hypothyroidism type: postoperative Qualified Code(s): E89.0 - Postprocedural hypothyroidism Plan: Patient with postoperative hypothyroidism, with TFTs from this year within normal range. She is biochemically euthyroid. Plan: -continue levothyroxine 75 mcg daily Plan I spent 30 minutes in reviewing the record, seeing the patient and documenting in the medical record. Orders: Orders 2 US biopsy thyroid Today E04.2 - Nontoxic multinodular goiter Medications: New 2 cholecalciferol (vitamin D3) 50 mcg PO DAILY 30 caps 11RF Discontinued 2 cholecalciferol (vitamin D3) Discontinued Reason: Patient Completed Course 50 mcg PO DAILY 90 caps 3RF Coding Level of Care Code Est Pt Level 4 (63909) Diagnoses Multinodular thyroid E04.2 Postoperative hypothyroidism E89.0 Hypothyroidism type: postoperative Time Spent (min) 30
== END 2024-04-27 08:32 | disposition home or self-care (01) ==
PROVIDERS: PCP Internal Medicine; Visit Provider Student in an Organized Health Care Education/Training Program
DX: E04.2 Nontoxic multinodular goiter (principal); E89.0 Postprocedural hypothyroidism
CPT/HCPCS: 99214

== ENCOUNTER → 2024-04-27 07:47 | Outpatient (BNVA) | payer OTHER, SELFPAY | PROVIDERS: PCP Internal Medicine; Visit Provider Student in an Organized Health Care Education/Training Program ==

== ENCOUNTER 2024-05-13 07:35 | Outpatient (REF) | payer OTHER, SELFPAY ==
--- NOTE | 2024-05-13 08:33 | PCN2_ITS ---
Brief Operative Note Date of procedure: 05/13/24 Pre-op diagnosis: left lower lobe 2.8 cm thyroid nodule FNA biopsy Post-op diagnosis: same Procedure: THYROID FINE NEEDLE ASPIRATION PROCEDURE NOTE ? PROCEDURE PERFORMED: Ultrasound-guided FNA of thyroid nodule ? OPERATORS: Dr. Luz Elena Gallego ? INDICATION: left lower lobe 2.8 cm thyroid nodule; FNA performed to assess for malignancy ? DESCRIPTION OF PROCEDURE: The indications for FNA (to assess for malignancy) were reviewed with the patient in detail. Potential complications (e.g., bleeding, infection, damage to local structures, absence of clear diagnosis after FNA) were reviewed. Alternatives to FNA including conservative observation or surgery were described. The patient understood and agreed to proceed. This was documented by the signing of the written informed consent form. A time-out was performed to confirm the patient's identity and the site of planned FNA. The nodule of interest was identified using ultrasound (14 MHz linear array probe). The site of FNA was then draped in the usual fashion and c arefully cleaned and prepared using alcohol swabs. The skin and subcutaneous tissue at the previously-identified site of needle insertion were iced and sprayed with numbing spray. Under ultrasound guidance, _5_ passes were performed using a 1.5-inch, 22-gauge needle, and sample was obtained via capillary action. The needle tip was clearly visualized to be within the nodule at the time of sampling for _4_ of _5_ passes The patient tolerated the procedure well. There were no immediate complications. A small adhesive bandage was applied, and the patient was advised to take acetaminophen (rather than NSAIDs) for any discomfort and to report any signs of inflammation/infection or marked swelling. IMPRESSION: Technically successful ultrasound-guided fine needle aspiration of left lower lobe 2.8 cm thyroid nodule FNA biopsy PLAN: The patient was advised that I will provide follow-up regarding the cytology result and any subsequent plans. Dr. Luz Elena Gallego Condition: stable Disposition: same day
== END 2024-05-13 07:36 | disposition home or self-care (01) ==
LOC: HO.US 07:35
PROVIDERS: PCP Internal Medicine; Visit Provider Student in an Organized Health Care Education/Training Program
DX: E04.2 Nontoxic multinodular goiter (principal)
CPT/HCPCS: 10005; 88173

== ENCOUNTER → 2024-05-13 07:35 | Outpatient (BNV) | payer OTHER, SELFPAY | PROVIDERS: PCP Internal Medicine; Visit Provider Student in an Organized Health Care Education/Training Program | DX: E04.2 Nontoxic multinodular goiter (principal) | CPT/HCPCS: 10005 ==

== ENCOUNTER 2024-05-27 15:48 | Outpatient (AMB) | payer OTHER, SELFPAY ==
[2024-05-27 15:52] VITALS: BP 142/82; PULSE 78; BMI 28.6
--- NOTE | 2024-05-27 15:52 | A.OFFVIS_ITS ---
Vital Signs 3 05/27/24 15:52 Height 5 ft 7 in Weight 182 lb 12.211 oz BMI 28.6 BP 142/82 H Blood Pressure Location Lt brachial Position Sitting Pulse 78 Pulse Source Pulse Oximeter Intake Visit Reasons: Biopsy f/u-conf Intake Note: Patient present today for biopsy results. Snow Maker Required: No Accompanied by: Self / Same As Patient Allergies No Known Allergies Allergy (Verified 05/27/24 15:56) HPI Comments Details: 48 YO F who is seen in F/U for a NTMNG. HPi from prior visit Was initially diagnosed with multinodular thyroid many years ago, she does not recall exactly when. She did previously see an Second Rigger at [place]. She states she had a biopsy over 11 years ago, but does not recall which nodules were biopsied. She underwent FNA biopsy 06/28/[address] Andino of her RMP 4.0 cm and her Isthmus 1.8 cm thyroid nodules, both with benign (Hoopa category II) cytology. She was noted at the time of biopsy to have a large heterogenous goiter, and was complaining of compressive symptoms. Discussion was held regarding surgical thyroidectomy to alleviate her symptoms. Status post robotic assisted right thoracoscopic resection of middle mediastinal goiter, robotic assisted right thoracoscopic resection of anterior mediastinal goiter with Dr. Nella Back and Dr. Gibson at [facility] 05/04. . Pathology report per chart review was benign on 75 mcg levothyroxine . Taking it appropriately and adherent. Recent thyroid ultrasound 10/05 showed 1. Location: Left lower pole. Size: 2.8 x 2.1 x 1.8 cm, volume 5.5 mL. Previously: 3.5 x 2.2 x 2.0 cm, volume 7.9 mL. Nodule characteristics: Composition: Solid (2). Echogenicity: Hypoechoic (2). Shape: Taller than wide (3). Margins: Smooth (0). Echogenic Foci: None (0). ACR TI-RADS total points: 7 Previous: 10 ACR TI-RADS category: 5 Previous: 5 Significant change in size (>/= 20% in 2 dimensions and minimal increase of 2 mm or 50% or greater increase in volume): Decreased. Change in features: No. Change in ACR TI-RADS risk category: No. RIGHT THYROIDECTOMY BED: No recurrent mass. NODES: No lymphadenopathy is seen in the tissue surrounding the thyroid gland. US/US thyroid IMPRESSION: Status post right-sided thyroidectomy. Nodule in the left lobe of the thyroid has decreased in size when compared to the prior study. Based upon its current size and TI-RADS classification, biopsy would be indicated as this is category 5 and over 1 cm in size. Please correlate with past histories of biopsies and pathologic reports. On 05/13/2024 patient underwent biopsy of the left lower pole nodule cytology benign, Hoopa category 2. Patient currently denies heat or cold intolerance, diarrhea or constipation, hair loss, palpitation, anxiety, mood changes, low energy, changes in appearance of eyes or vision changes, tremors, increased diaphoresis or dry skin. ?Periods regular. Feels like she has gained 10 lbs but she has lost some before seems like she just gained it back. Patient currently endorses some difficulty swallowing but not too often. Denies pain on swallowing or voice changes or difficulty breathing. Her friend noticed the left side of her neck is more prominent. Patient denies any history of childhood neck radiation. Denies having ever used lithium, amiodarone or biotin supplements. Patient denies any family history of thyroid cancer or thyroid disease. Review of systems Constitutional: no fevers, chills HEENT: no changes in vision Cardiac: No chest pain, discomfort or palpitations. Pulmonary: No SOB GI:No abdominal pain, no nausea or vomiting, no anorexia, no blood in stool : no burning micturition, dysuria or increase in urinary frequency Physical exam General: sitting comfortably in no acute distress HEENT: normocephalic/atraumatic, moist oral mucosa Neck: supple, palpable 2 cm nodule in the left lobe Cardiac: normal heart sounds Pulm: normal breath sounds B/L, no added breath sounds Abd: not distended, no tenderness Extremities: no edema, no signs of myxedema PFSH Medical History (Updated 04/27/24 @ 08:38 by Luz Elena Gallego MD) Hypothyroidism Rash Annual physical exam Hyperlipidemia Hemorrhoids Lab test positive for detection of COVID-19 virus Back pain GERD (gastroesophageal reflux disease) Elevated cholesterol Bronchitis Asthma Surgical History Hx of partial thyroidectomy Hx of ultrasound guided needle biopsy H/O colonoscopy Family History Father No problems noted. Mother Skin cancer Maternal Grandmother Colon cancer Social History Housing: Condominium Alcohol intake: current Alcohol intake frequency: holidays/special occasions only Patient Tobacco Use Status: Former Tobacco user Years Smoked: 2 yrs e-Cigarette/Vaping Use: Never Used Second Hand Smoke Exposure: No Current occupational status: employed Current occupation: [employer] Current occupational exposures/hazards: No Cognitive needs: No Hearing needs: No Vision needs: Yes Physical Exam Vital Signs: Last Vital Signs Pulse 78 05/27/24 15:52 BP 142/82 H 05/27/24 15:52 BMI result Body Mass Index 28.6 Results Reviewed Results Reviewed: Laboratory Tests 10/05/23 04/08/24 11:50 07:44 TSH 0.77 1.90 Free T4 1.07 1.08 US THYROID 10/05 I reviewed the images myself which do show the left taller than wide 2.8 cm solid hypoechoic nodule. No punctate echogenic foci. Well- defined.. CLINICAL INFORMATION: Nontoxic multinodular goiter. Right thyroidectomy. COMPARISON: CT soft tissue neck 07/20/2022. Ultrasound-guided thyroid biopsy 06/28/2022. Thyroid ultrasound 10/30/2021. TECHNIQUE: Linear transducer grayscale and color Doppler examination with attention to the region of the thyroid. FINDINGS: SIZE: Measurements of the solitary left lobe and nodules are given in sagittal, anteroposterior and transverse dimensions respectively. Right Thyroid Lobe: Surgically absent. Left Thyroid Lobe: 4.9 x 2.9 x 1.3 cm, volume 9.8 mL. Previously 5.9 x 3.0 x 1.2 cm, volume 11 mL. Parenchyma: The gland echotexture is heterogeneous. Thyroid vascularity is normal. Isthmus: 0.3 cm in maximum AP dimension. Previously 1.1 cm. Estimated total number of nodules greater than or equal to 1 cm: 1. Solution Design And Analysis Manager nodules are described as follows: 1. Location: Left lower pole. Size: 2.8 x 2.1 x 1.8 cm, volume 5.5 mL. Previously: 3.5 x 2.2 x 2.0 cm, volume 7.9 mL. Nodule characteristics: Composition: Solid (2). Echogenicity: Hypoechoic (2). Shape: Taller than wide (3). Margins: Smooth (0). Echogenic Foci: None (0). ACR TI-RADS total points: 7 Previous: 10 ACR TI-RADS category: 5 Previous: 5 Significant change in size (>/= 20% in 2 dimensions and minimal increase of 2 mm or 50% or greater increase in volume): Decreased. Change in features: No. Change in ACR TI-RADS risk category: No. RIGHT THYROIDECTOMY BED: No recurrent mass. NODES: No lymphadenopathy is seen in the tissue surrounding the thyroid gland. US/US thyroid IMPRESSION: Status post right-sided thyroidectomy. Nodule in the left lobe of the thyroid has decreased in size when compared to the prior study. Based upon its current size and TI-RADS classification, biopsy would be indicated as this is category 5 and over 1 cm in size. Please correlate with past histories of biopsies and pathologic reports. Assessment & Plan Assessment & Plan (1) Multinodular thyroid: Comment: Status post R partial thyroidectomy and thoracoscopic resection of mediastinal medial and anterior goiter 05/04 , f/u with Endo Code(s): E04.2 - Nontoxic multinodular goiter Category: Medical Plan: Patient with no family history of thyroid cancer, with no personal history of head or neck radiation, who has a history of nontoxic multinodular goiter for many years with the original biopsies 11 years ago, we do not have records of these which were reportedly benign, who subsequently was seeing Dr. Andino, FNA 1 08/28/[address] Andino of her RMP 4.0 cm and her Isthmus 1.8 cm thyroid nodules, both with benign results, who was having some degree of compressive symptoms, with subsequent imaging revealing large substernal goiter status post robotic assisted right thoracoscopic resection of middle mediastinal goiter, robotic assisted right thoracoscopic resection of anterior mediastinal goiter with Dr. Nella Back and Dr. Gibson at [facility] 05/04. Pathology report per chart review was benign . She has a remnant left lobe of the thyroid with a dominant 2.8 cm nodule, which on most recent ultrasound from September 2023 appears solid, hypoechoic, taller than wide. This is TR 4 category, or based on shape high suspicion category per JABIER which falls into greater than 50% chance of malignancy warranting biopsy. The nodule does not appear very high-risk to me besides is shape, and given that she has had most of her thyroid removed with benign pathology, these are all reassuring. The nodule is also decreased in size. However it did criteria for FNA and I discussed with the patient that given that it does harbor significant risk for malignancy given high suspicious shaped, Underwent FNA of this nodule on 05/13/2024 with benign cytology, Hoopa category 2. She does have some degree of compressive symptoms though not very bothersome. TFTs from this year unremarkable. We will plan to repeat her ultrasound next year in January 2025. That will be about 1.5 years from her last ultrasound. If that shows stable size of her left-sided nodule, can space out the next ultrasound by 2 years. Plan: -ultrasound thyroid ordered for January 2025 with follow up in February 2025. (2) Hypothyroidism: Code(s): E03.9 - Hypothyroidism, unspecified Category: Medical Qualifiers: Hypothyroidism type: postoperative Qualified Code(s): E89.0 - Postprocedural hypothyroidism Plan: Patient with postoperative hypothyroidism, with TFTs from this year within normal range. She is biochemically euthyroid. Plan: -continue levothyroxine 75 mcg daily -repeat TFTs in January 2025 prior to her follow up in February 2025. Orders placed. Orders: Orders 2 US thyroid 01/11/25 E04.2 - Nontoxic multinodular goiter Thyroid Stimulating Hormone 01/11/25 E04.2 - Nontoxic multinodular goiter, E89.0 - Postprocedural hypothyroidism Free T4 (Free Thyroxine) 01/11/25 E04.2 - Nontoxic multinodular goiter, E89.0 - Postprocedural hypothyroidism Medications: Refilled 2 levothyroxine 75 mcg PO DAILY 90 tabs 3RF Coding Level of Care Code Est Pt Level 3 (05081) Diagnoses Multinodular thyroid E04.2 Postoperative hypothyroidism E89.0 Hypothyroidism type: postoperative
== END 2024-05-27 16:12 | disposition home or self-care (01) ==
PROVIDERS: PCP Internal Medicine; Visit Provider Student in an Organized Health Care Education/Training Program
DX: E04.2 Nontoxic multinodular goiter (principal); E89.0 Postprocedural hypothyroidism
CPT/HCPCS: 99213

== ENCOUNTER → 2024-05-27 15:48 | Outpatient (BNVA) | payer OTHER, SELFPAY | PROVIDERS: PCP Internal Medicine; Visit Provider Student in an Organized Health Care Education/Training Program ==

== ENCOUNTER 2024-07-14 08:03 | Outpatient (AMB) | payer OTHER, SELFPAY ==
--- NOTE | 2024-07-14 08:06 | AM.OFFWIN_ITS ---
Intake Vital Signs 07/14/24 08:07 Weight 178 lb BP 110/72 Blood Pressure Location Rt brachial Position Sitting Pulse 74 Pulse Source Pulse Oximeter Temp 98.1 F Temp Source Oral Pulse Oximetry (%) 98 Oxygen Delivery Method Room Air Intake Visit Reasons: EP head cold, cough, wheezing, congestion Intake Note: Patient here for congestion, cough, wheezing and runny nose whistch arted saturday. Patient Tobacco Use Status: Former Tobacco user Allergies No Known Allergies Allergy (Verified 07/14/24 08:08) Do you need a note to return to daycare/school/sports/work: Yes HPI HPI Comments History of Present Illness Details This is a 48-year-old female with a past medical history of asthma and hyperlipidemia presenting for evaluation of a scratchy throat that is uncomfortable only when coughing as well as nasal congestion and fatigue that started on Saturday. Patient denies having any fevers, chills, ear pain, chest pain, nausea, vomiting and describes her cough as dry in nature. Patient has not taken any medications for treatment of her discomfort COUNT INCLUDES THE [facility] Medical History (Updated 07/14/24 @ 08:28 by Leah Nation PA-C) Hypothyroidism Rash Annual physical exam Hyperlipidemia Hemorrhoids Lab test positive for detection of COVID-19 virus Back pain GERD (gastroesophageal reflux disease) Elevated cholesterol Bronchitis Asthma Surgical History Hx of partial thyroidectomy Hx of ultrasound guided needle biopsy H/O colonoscopy Family History Father No problems noted. Mother Skin cancer Maternal Grandmother Colon cancer Social History Housing: Condominium Alcohol intake: current Alcohol intake frequency: holidays/special occasions only Patient Tobacco Use Status: Former Tobacco user Years Smoked: 2 yrs e-Cigarette/Vaping Use: Never Used Second Hand Smoke Exposure: No Current occupational status: employed Current occupation: [employer] Current occupational exposures/hazards: No Cognitive needs: No Hearing needs: No Vision needs: Yes Review of Systems Const All systems reviewed & are unremarkable except as noted in HPI and below Denies chills, Reports fatigue and Denies fever(s) Eyes Reports no additional complaints ENT Denies otalgia, Denies facial pain, Reports nasal congestion, Denies sinus pain and Denies sinus pressure Card Reports no additional complaints and Denies dyspnea Resp Reports no additional complaints, Reports cough and Denies dyspnea GI Reports no additional complaints Reports no additional complaints Musc Reports no additional complaints Skin/Breast Reports system reviewed and no additional complaints, except as documented Neuro Reports no additional complaints Psych Reports no additional complaints Endo Reports no additional complaints and Reports fatigue Fernando/Lymph Reports no additional complaints Aller/Immun Reports no additional complaints Physical Exam Const General: cooperative, healthy appearing, comfortable, no acute distress, well developed, alert, awake and Physically active; No lethargic Nutritional Appearance: average body habitus Orientation/consciousness: patient oriented x3 and No lethargic Limitations: no limitations HEENT Head: Yes normal to inspection and Yes normocephalic Ears: hearing grossly normal bilaterally, external ears normal, right TM abnormal (Bulging without erythema), TM normal on the left and EAC's normal General nose exam: Normal external nose present Face and sinus: Yes normal facial exam Mouth: Normal oral and palatal mucosa present, oropharynx normal and moist mucous membranes Throat: Yes posterior oropharynx normal (There is no erythema, edema or exudates of the posterior oropharynx) Eyes General: appearance normal, both eyes and all related structures Visual Pleitez: normal visual pleitez by confrontation Alignment and Position: alignment normal Periorbital: periorbital findings normal Eyelids: Yes eyelids normal Conjunctivae: conjunctivae normal Sclerae: sclerae normal Corneas: corneas normal Pupils: Equal, round and reactive pupils present EOM: EOMs intact bilaterally Neck Lymphatic: no lymphadenopathy noted Resp Effort & Inspection: normal respiratory effort, able to speak in complete sentences, no audible wheezes, no cough, no respiratory distress and no stridor Auscultation: clear to auscultation bilaterally and no wheezes Cardio Rate: regular rate Rhythm: regular rhythm Skin General skin exam: no rashes or lesions noted Neuro General: patient oriented x3 Cranial nerves: Yes Equal, round and reactive pupils present Psych Appearance: grossly normal Mental Status: mental status grossly normal Insight: Good insight present (Psych) Judgement: Good judgement present (Psych) Assessment & Plan Assessment & Plan (1) Acute upper respiratory infection: Comment: There is no clinical evidence of a bacterial sinusitis or otitis media. Code(s): J06.9 - Acute upper respiratory infection, unspecified Plan: Increase fluids, ibuprofen or Tylenol for pharyngitis, follow up with PCP in 7- 10 days if symptoms are not improving. Coding Level of Care Code Est Pt Level 3 (54873) Diagnoses Acute upper respiratory infection J06.9 Time Spent (min) 20
[2024-07-14 08:07] VITALS: BP 110/72; PULSE 74; TEMP 36.7; O2SAT 98
== END 2024-07-14 08:51 | disposition home or self-care (01) ==
PROVIDERS: PCP Internal Medicine; Visit Provider Physician Assistant
DX: J06.9 Acute upper respiratory infection, unspecified (principal)

== ENCOUNTER → 2024-07-14 08:03 | Outpatient (BNVA) | payer OTHER, SELFPAY | PROVIDERS: PCP Internal Medicine; Visit Provider Physician Assistant ==

== ENCOUNTER 2024-10-13 06:56 | Outpatient (REF) | payer OTHER, SELFPAY ==
[2024-10-14 07:09] LABS: Follicle Stimulating Hormone 8.5 mIU/mL; Lutenizing Hormone 16.4 mIU/mL
[2024-10-24 18:02] LABS: Estradiol Free 3.14 pg/mL; Estradiol, Ultrasensitive 161 pg/mL
== END 2024-10-13 06:57 | disposition home or self-care (01) ==
LOC: HO.HMGCLDS 06:56
PROVIDERS: PCP Internal Medicine; Visit Provider Advanced Practice Midwife
DX: N95.1 Menopausal and female climacteric states (principal); N92.6 Irregular menstruation, unspecified
CPT/HCPCS: 36415; 82670; 82681; 83001; 83002

== ENCOUNTER 2024-11-04 14:01 | Outpatient (AMB) | payer OTHER, SELFPAY ==
[2024-11-04 14:12] VITALS: BP 98/66; PULSE 77; RESP 18; TEMP 36.9; O2SAT 96; BMI 27.9
--- NOTE | 2024-11-04 14:12 | MHC.PC.OV ---
Vital Signs 11/04/24 14:12 Height 5 ft 7 in Weight 178 lb BMI 27.9 BP 98/66 Blood Pressure Location Rt brachial Position Sitting Respiration 18 Pulse 77 Pulse Source Pulse Oximeter Temp 98.4 F Temp Source Oral Pulse Oximetry (%) 96 Oxygen Delivery Method Room Air Intake Visit Reasons: PE Intake Note: Pt is here today for PE. Allergies No Known Allergies Allergy (Verified 11/04/24 14:13) Medication List - Last Reconciled 11/04/24 by Mikaela Connell MD acetaminophen 1,000 mg (2 x 500 mg) PO Q6H PRN albuterol sulfate 90 mcg/actuation 2 inhalations inhalation QID PRN cholecalciferol (vitamin D3) 50 mcg PO DAILY ibuprofen 600 mg PO Q8H PRN levothyroxine 75 mcg PO DAILY pravastatin 40 mg PO BEDTIME Tobacco use date assessed: 11/04/24 Dental Screening Dental Screen Date: 11/04/24 Did you have a dental visit in the last 12 months?: Yes Did you have a dental problem in the last 6 months where you did not have access to dental care?: No Was dental information given to patient?: Patient has dentist HPI PE HPI Details Patient presents for physical. She is going on a cruise to [facility] in April [facility] Medical History Hypothyroidism Rash Annual physical exam Hyperlipidemia Hemorrhoids Lab test positive for detection of COVID-19 virus Back pain GERD (gastroesophageal reflux disease) Elevated cholesterol Bronchitis Asthma Surgical History Hx of partial thyroidectomy Hx of ultrasound guided needle biopsy H/O colonoscopy Family History Father No problems noted. 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 1. Little interest or pleasure in doing things: not at all 2. Feeling down, depressed, or hopeless: not at all 3. Trouble falling or staying asleep, or sleeping too much: not at all 4. Feeling tired or having little energy: not at all 5. Poor appetite or overeating: not at all 6. Feeling bad about yourself - or that you are a failure or have let yourself or your family down: not at all 7. Trouble concentrating on things, such as reading the newspaper or watching television: not at all 8. Moving or speaking so slowly that other people could have noticed. Or the opposite - being so fidgety or restless that you have been moving around a lot more than usual: not at all 9. Thoughts that you would be better off or of hurting yourself in some way: not at all Total score: 0 Depression Screening Interpretation: Negative Depression Screening Done: Yes 30635 - PHQ-9 Billing: Yes Source: Developed by Drs. Edy Chua, Kaitlin Ferguson, Isaias Farfan and colleagues, with an educational mitchell from [employer]. Thrive Questionnaire Date Thrive assessed: 11/04/24 I am a: Patient What is your living situation today?: I have a steady place to live Within the past 12 months, did the food you bought not last and you didn't have the money to get more?: I choose not to answer this question Within the past 12 months, did you worry whether your food would run out before you got money to buy more?: I choose not to answer this question Do you have trouble paying for medicines?: No Do you have trouble getting transportation to medical appointments?: No Do you have trouble paying your heating and electricity bill?: No Do you have trouble taking care of your child, family member or friend?: No Do you have trouble with day-to-day activities such as bathing, preparing meals, shopping, managing finances, etc.?: No Are you currently unemployed and looking for a job?: No Are you interested in more education?: No Please select the resources that you would like help with: None Currently or been in a relationship where the following occur: No concerns reported THRIVE Score: 0 AUDIT C Alcohol Use Questionnaire (AUDIT-C) 1. How often do you have a drink containing alcohol?: 2-4 times a month 2. How many drinks containing alcohol do you have on a typical day when you are drinking?: 1 or 2 3. How often do you have six or more drinks on one occasion?: Less than monthly Total Score: 3 MARY-7 AMB Questionnaire MARY-7 Date MARY - 7 assessed: 11/04/24 Feeling nervous, anxious, or on edge: 0 = Not at all Not being able to stop or control worryin = Not at all Worrying too much about different things: 0 = Not at all Trouble relaxin = Not at all Being so restless that it is hard to sit still: 0 = Not at all Becoming easily annoyed or irritable: 0 = Not at all Feeling afraid as if something awful might happen: 0 = Not at all Total MARY-7 score (0-4 normal; 5-9 mild; 10-14 moderate; 15-21 severe): 0 Source: Developed by Drs. Edy Chua, Kaitlin Ferguson, Isaias Farfan and colleagues, with an educational mitchell from [employer]. MARY-7 Assessment Billing MARY-7 Assessment Tool: MARY-7 Assessment 74218 Review of Systems Const All systems reviewed & are unremarkable except as noted in HPI and below Eyes Reports no additional complaints ENT Reports no additional complaints Card Reports no additional complaints Resp Reports no additional complaints GI Reports no additional complaints Reports no additional complaints Physical exam (Primary Care) Vital Signs: Last Vital Signs Temp 98.4 F 11/04/24 14:12 Pulse 77 11/04/24 14:12 Resp 18 11/04/24 14:12 BP 98/66 11/04/24 14:12 Pulse Ox 96 11/04/24 14:12 Oxygen Delivery Method Room Air 11/04/24 14:12 BMI result Body Mass Index 27.9 Tobacco/Smoking Status: Tobacco use Status Tobacco use date assessed 11/04/24 11/04/24 14:13 Patient Tobacco Use Status Former Tobacco user 11/04/24 14:13 e-Cigarette/Vaping Use Never Used 11/04/24 14:13 PHQ-9: PHQ-9 Score PHQ-9: Total score 0 11/04/24 14:13 Depression Screening Interpretation: Negative Thrive Assessment: Date of Thrive Assessment Date Thrive assessed 11/04/24 11/04/24 14:13 Currently or been in a relationship where the following occur: No concerns reported Const General: no acute distress HENMT Head: Yes normal to inspection General nose exam: Normal external nose present Face and sinus: Yes normal facial exam Mouth: Normal oral and palatal mucosa present Eyes General: appearance normal, both eyes and all related structures Neck Neck: Yes no lymphadenopathy and Yes supple Resp Effort & Inspection: normal respiratory effort Auscultation: clear to auscultation bilaterally Cardio Rhythm: regular rhythm Heart sounds: S1 normal heart sound present and S2 normal heart sound present GI Inspection: Yes normal to inspection Palpation (GI): Soft to palpation Percussion: Yes normal to percussion Auscultation: normal bowel sounds Coding Level of Care Code Est Pt Prev Care 40-64y(82924) Diagnoses Hyperlipidemia E78.5 Annual physical exam Z00.00 Multinodular thyroid E04.2 Additional Codes MARY-7 Assessment Billing - MARY-7 Assessment Tool: MARY-7 Assessment 74514 ([id number]) PHQ-9 - 31727 - PHQ-9 Billing: Yes ([id number]) Assessment & Plan Assessment & Plan (1) Hyperlipidemia: Code(s): E78.5 - Hyperlipidemia, unspecified Category: Medical Plan: Continue pravastatin return for fasting blood work (2) Annual physical exam: Code(s): Z00.00 - Encounter for general adult medical examination without abnormal findings Category: Medical Plan: Well-balanced diet regular physical activity discussed with the patient. She is up-to-date with the mammogram Pap smear by oral and maxillofacial surgeon and colonoscopy. Patient will return in 1 year (3) Multinodular thyroid: Comment: Status post R partial thyroidectomy and thoracoscopic resection of mediastinal medial and anterior goiter 05/04 , f/u with Endo Code(s): E04.2 - Nontoxic multinodular goiter Category: Medical Plan: Continue levothyroxine follow-up with endocrinology Orders: Orders Lipid Panel Today E04.2 - Nontoxic multinodular goiter, E78.5 - Hyperlipidemia, unspecified, R21 - Rash and other nonspecific skin eruption, Z00.00 - Encounter for general adult medical examination without abnormal findings Lipid Panel 1 Year Z00.00 - Encounter for general adult medical examination without abnormal findings Complete Blood Count Auto Diff Today E04.2 - Nontoxic multinodular goiter, E78.5 - Hyperlipidemia, unspecified, R21 - Rash and other nonspecific skin eruption, Z00.00 - Encounter for general adult medical examination without abnormal findings Comprehensive Keo. Panel Fast Today E04.2 - Nontoxic multinodular goiter, E78.5 - Hyperlipidemia, unspecified, R21 - Rash and other nonspecific skin eruption, Z00.00 - Encounter for general adult medical examination without abnormal findings Comprehensive Keo. Panel Fast 1 Year Z00.00 - Encounter for general adult medical examination without abnormal findings Complete Blood Count Auto Diff 1 Year Z00.00 - Encounter for general adult medical examination without abnormal findings Vitamin D 25-OH Total 1 Year Z00.00 - Encounter for general adult medical examination without abnormal findings Medications: Refilled pravastatin 40 mg PO BEDTIME 90 tabs 3RF
== END 2024-11-04 15:09 | disposition home or self-care (01) ==
LOC: HO.HMCC 14:02
PROVIDERS: PCP Internal Medicine; Visit Provider Internal Medicine
DX: E78.5 Hyperlipidemia, unspecified (principal); Z00.00 Encounter for general adult medical examination without abnormal findings; E04.2 Nontoxic multinodular goiter

== ENCOUNTER → 2024-11-04 14:01 | Outpatient (BNVA) | payer OTHER, SELFPAY | PROVIDERS: PCP Internal Medicine; Visit Provider Internal Medicine | DX: Z00.00 Encounter for general adult medical examination without abnormal findings (principal); E78.5 Hyperlipidemia, unspecified; E04.2 Nontoxic multinodular goiter; Z79.899 Other long term (current) drug therapy | CPT/HCPCS: 96127 ==

== ENCOUNTER 2024-11-19 07:59 | Outpatient (REF) | payer OTHER, SELFPAY ==
[2024-11-19 11:32] LABS: Influenza A PCR NEGATIVE (Negative); Influenza B PCR NEGATIVE (Negative); Resp Syncy Virus RNA Qual PCR NEGATIVE (Negative); SARS COV2 PCR INHOUSE NEGATIVE (Negative)
== END 2024-11-19 08:00 | disposition home or self-care (01) ==
LOC: HO.LNP 07:59
PROVIDERS: Physician Assistant; Visit Provider Internal Medicine
DX: J06.9 Acute upper respiratory infection, unspecified (principal); R09.89 Other specified symptoms and signs involving the circulatory and respiratory systems
CPT/HCPCS: 0241U; 87880

== ENCOUNTER 2024-11-19 07:59 | Outpatient (AMB) | payer OTHER, SELFPAY ==
[2024-11-19 08:22] VITALS: BP 110/72; PULSE 83; TEMP 36.8; O2SAT 98; BMI 27.9
--- NOTE | 2024-11-19 08:22 | AM.OFFWIN_ITS ---
Intake Vital Signs 11/19/24 08:22 Height 5 ft 7 in Weight 178 lb BMI 27.9 BP 110/72 Blood Pressure Location Lt brachial Position Sitting Pulse 83 Pulse Source Pulse Oximeter Temp 98.3 F Temp Source Oral Pulse Oximetry (%) 98 Oxygen Delivery Method Room Air Intake Visit Reasons: EP cough, wheezing, sore throat, chest tight Patient Tobacco Use Status: Former Tobacco user Allergies No Known Allergies Allergy (Verified 11/19/24 08:23) Do you need a note to return to daycare/school/sports/work: Yes HPI HPI Comments History of Present Illness Details History - The patient is a 48-year-old female wi th past med hx of asthma presenting with wheezing, cough, and chest tightness. - Symptoms started one day ago with a sc ratchy throat and cough. - The patient typically uses a rescue in [place] as needed, but it so she threw it away. - There have been no instances of fever, or sinus pain. Some left ear pain this AM which is now improved. - Denies smoking or vaping habits. - Happ-kmo-opkplbc treatments started re cently include DayQuil and Airborne gummies. - Reports no night-time disturbance from cough, albeit some transient ear discomfort was noted. Physical Exam General: Cooperative, healthy appearing, comfortable and no acute distress Orientation/consciousness: Patient oriented x3 Limitations: No limitations Head: Normal to inspection Ears: Hearing grossly normal bilaterally, external ears normal and TM's normal bilaterally Nose: Normal external nose present, Normal nares present and No nasal discharge present Face and sinus: Normal facial exam and Yes sinuses nontender Mouth: Normal oral and palatal mucosa present and moist mucous membranes Throat: Yes tonsils normal, Yes uvula midline. Posterior oropharynx erythema Eyes: Appearance normal, both eyes and all related structures Neck: Normal visual inspection Respiratory: Clear to auscultation bilaterally. Normal respiratory effort, able to speak in complete sentences, Actively coughing, no respiratory distress, not tachypneic, no tripod positioning and no use of accessory muscles Cardiovascular: Regular rate and rhythm. Normal S1 and S2 Skin: No rashes or lesions noted Neuro: Patient oriented x3 Extremities: Normal to inspection and Yes no clubbing, cyanosis or edema [facility] Medical History Hypothyroidism Rash Annual physical exam Hyperlipidemia Hemorrhoids Lab test positive for detection of COVID-19 virus Back pain GERD (gastroesophageal reflux disease) Elevated cholesterol Bronchitis Asthma Surgical History Hx of partial thyroidectomy Hx of ultrasound guided needle biopsy H/O colonoscopy Family History Father No problems noted. Mother Skin cancer Maternal Grandmother Colon cancer Social History Housing: Condominium Alcohol intake: current Alcohol intake frequency: holidays/special occasions only Patient Tobacco Use Status: Former Tobacco user Years Smoked: 2 yrs e-Cigarette/Vaping Use: Never Used Second Hand Smoke Exposure: No service: No Current occupational status: employed Current occupation: [employer] Current occupational exposures/hazards: No Cognitive needs: No Hearing needs: No Vision needs: Yes Review of Systems Const All systems reviewed & are unremarkable except as noted in HPI and below Physical Exam Vital Signs: Last Vital Signs Temp 98.3 F 11/19/24 08:22 Pulse 83 11/19/24 08:22 BP 110/72 11/19/24 08:22 Pulse Ox 98 11/19/24 08:22 Oxygen Delivery Method Room Air 11/19/24 08:22 BMI result Body Mass Index 27.9 Results AMB Rapid Strep AMB Rapid Strep Negative Last Edit by Azam Ponce CMA on 11/19/24 08 :35 Results Reviewed Results Reviewed: Laboratory Last Values Strep Scn Rapid Clinic Negative 11/19/24 08:34 Assessment & Plan Assessment & Plan (1) Acute upper respiratory infection: Code(s): J06.9 - Acute upper respiratory infection, unspecified Plan: VSS, pt well appearing and PE unremarkable. Rapid strep negative. A new albuterol inhaler was prescribed to address the patient's asthma, and a tapered regimen of SoluMedrol was initiated to alleviate chest tightness and inflammation. Tessalon Perles was provided for nighttime cough suppression. Testing for influenza, COVID-19, and RSV was conducted to rule out infection, though a clear lung auscultation reduced the necessity for immediate imaging, with a chest X-ray available if needed later. Monitoring will focus on symptom resolution and test outcomes. Patient was informed and verbally consented to the use of an ambient scribe for clinic note documentation during this visit Orders: Orders AMB Rapid Strep Screen Today Z13.9 - Encounter for screening, unspecified SARS-CoV2/FLU/RSV Today R09.89 - Other specified symptoms and signs involving the circulatory and respiratory systems Medications: New benzonatate 200 mg PO BEDTIME PRN 10 caps 0RF cough methylprednisolone PO PER PKG DIR for 6 days 21 ea 0RF Refilled albuterol sulfate 90 mcg/actuation 2 inhalations inhalation QID PRN 6.7 grams 4RF shortness of breath or wheezing Coding Level of Care Code Est Pt Level 3 (92100) Diagnoses Acute upper respiratory infection J06.9
== END 2024-11-19 08:49 | disposition home or self-care (01) ==
PROVIDERS: PCP Internal Medicine; Visit Provider Physician Assistant
DX: J06.9 Acute upper respiratory infection, unspecified (principal); Z13.9 Encounter for screening, unspecified

== ENCOUNTER 2024-12-16 07:59 | Outpatient (AMB) | payer OTHER, SELFPAY ==
--- NOTE | 2024-12-16 08:01 | MHC.OFFWIV ---
Intake Vital Signs 12/16/24 08:03 12/16/24 08:22 12/16/24 08:24 12/16/24 08:24 Weight 187 lb BP 118/80 130/92 H 110/80 118/88 Blood Pressure Location Rt brachial Lt brachial Lt brachial Lt brachial Position Sitting Supine Sitting Standing Pulse 68 66 65 88 Pulse Source Pulse Oximeter Pulse Oximeter Pulse Oximeter Pulse Oximeter Pulse Oximetry (%) 97 96 98 97 Oxygen Delivery Method Room Air Room Air Room Air Room Air Intake Visit Reasons: EP lightheadness, dizziness, swollen feet Intake Note: Patient here for bilat feet swelling, dizziness and slight slightheadness. Patient Tobacco Use Status: Former Tobacco user Allergies No Known Allergies Allergy (Verified 12/16/24 08:05) Do you need a note to return to daycare/school/sports/work: Yes HPI HPI Comments History of Present Illness Details Patient is a 48yo F with hx of hypothyroidism, asthma, HLD who presents with feet edema + intermittent lihtheadedness ongoing x 1.5 weeks Doesn't occur everyday but occurs intermittently Happens at rest, not with standing Not worse with movement No syncope or HT No unilateral weakness Denies double vision or blurred vision No nausea, vomiting, CP or SOB SHe admis to feeling lighgheaded in the past; she mentioned symptoms to friend who convinced her to come She denies new medications or change in medications recently She does admit to feet swelling occasionally. Notices it worse with warm weather and drinking alcohol PFSH Medical History Hypothyroidism Rash Annual physical exam Hyperlipidemia Hemorrhoids Lab test positive for detection of COVID-19 virus Back pain GERD (gastroesophageal reflux disease) Elevated cholesterol Bronchitis Asthma Surgical History Hx of partial thyroidectomy Hx of ultrasound guided needle biopsy H/O colonoscopy Family History Father No problems noted. 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 Current occupational exposures/hazards: No Cognitive needs: No Hearing needs: No Vision needs: Yes Review of Systems Const Denies chills, Denies fatigue, Denies fever(s), Denies frequent falls, Denies headache(s) and Denies weakness Eyes Denies blurry vision, Denies exophthalmos and Denies change in vision ENT Denies vertigo, Reports dizziness, Denies headache(s), Denies nasal congestion, Denies sore throat and Denies throat swelling Card Denies chest pain, Denies syncope, Reports pedal edema (R lateral foot with rash associated) and Denies dyspnea Resp Denies chest congestion, Denies cough and Denies dyspnea GI Denies abdominal pain, Denies constipation, Denies diarrhea, Denies nausea and Denies vomiting Musc Denies myalgias Skin/Breast Reports rash (R lateral foot fungal infection) Neuro Denies behavioral changes, Denies confusion, Denies vertigo, Reports dizziness, Denies syncope, Denies frequent falls, Denies headache(s), Denies lack of coordination, Denies memory loss and Denies weakness Psych Denies behavioral changes, Denies confusion and Denies memory loss Endo Denies fatigue Aller/Immun Denies throat swelling Physical Exam Vital Signs: Last Vital Signs Pulse 88 12/16/24 08:24 BP 118/88 12/16/24 08:24 Pulse Ox 97 12/16/24 08:24 Oxygen Delivery Method Room Air 12/16/24 08:24 General: Non-toxic, NAD. Speaking full sentences. Skin: Warm dry throughout. R foot dorsal aspect myra 4/5th digits has small area of skin breakdown and slight erythema. No bleeding, FB or discharge. No FB to plantar aspect foot Eye: EOMI, PERRL HENT: Airway patent. Uvula midline. No pharyngeal erythema or edema. No MARKET EDITOR. Bilateral canals clear. TM non-erythematous, non-bulging. No TM perforation or hemotympanum noted. Respiratory: CTA bilaterally. No wheezes, rales or rhonchi Cardiac: RRR. No murmur. No pedal edema or pitting edema. DP pulse intact. No calf ttp bilaterally MSK: Full ROM extremities. Neurology: A/O x 3. CN 2-12 grossly intact. Finger to nose tracing equal. Negative pronator drfit.Equal strength No aphasia or facial droop. Gait without abnormality Psych: Good mood and affect Const General: No confusion Orientation/consciousness: No confusion Neuro General: No confusion Assessment & Plan Assessment & Plan (1) Lightheaded: Code(s): R42 - Dizziness and giddiness Plan: Patient seen and evaluated. Orthostatics showed no acute abnormality R lateral foot has small area of skin breakdown and recommended she have PCP send to podiatry for management No neurological deficit on exam She has CBC, BMP, Liver, Vit D ordered by PCP Will add BNP and TSH/T4 Discussed ER s/s for presyncope, CP etc She has close follow up with her PCP Patient gave verbal understanding and had no additional questions or concerns at time of discharge All questions answered Orders: Orders B Type Natriuretic Peptide Today R42 - Dizziness and giddiness TSH reflex Free T4 Today R42 - Dizziness and giddiness Coding Level of Care Code Est Pt Level 3 (60746) Diagnoses Lightheaded R42
[2024-12-16 08:03] VITALS: BP 118/80; PULSE 68; O2SAT 97
[2024-12-16 08:22] VITALS: BP 130/92; PULSE 66; O2SAT 96
[2024-12-16 08:24] VITALS: BP 110/80; BP 118/88; PULSE 65; PULSE 88; O2SAT 97; O2SAT 98
== END 2024-12-16 08:49 | disposition home or self-care (01) ==
PROVIDERS: PCP Internal Medicine; Visit Provider Physician Assistant
DX: R42 Dizziness and giddiness (principal)

== ENCOUNTER 2024-12-16 07:59 | Outpatient (REF) | payer OTHER, SELFPAY ==
[2024-12-16 10:10] LABS: MANUAL DIFF FLAG NO
[2024-12-16 10:18] LABS: Basophils Percent Auto 0.6 % (0-2); Eosinophils Absolute Auto 0.3 X10*3/uL (0.0-0.4); Eosinophils Percent Auto 3.6 % (0-4); Hematocrit 35.7 % (37.0-47.0); Hemoglobin 11.9 g/dl (12.0-16.0); Imm Gran Abs Auto 0.03 X10*3/uL (0.00-0.03); Imm Gran Pct Auto 0.4 % (0.0-0.4); Lymphocytes Absolute Auto 1.8 X10*3/uL (1.2-4.9); Mean Corpuscular HGB Conc 33.3 g/dl (31.0-35.0); Mean Corpuscular Hemoglobin 30.1 pg (27.0-33.0); Mean Corpuscular Volume 90.2 fL (80.0-98.0); Mean Platelet Volume 10.3 fL (9.4-12.3); Monocytes Absolute Auto 0.6 X10*3/uL (0.1-1.2); Monocytes Percent Auto 8.1 % (2-11); Neutrophils Absolute Auto 4.2 x10*3/uL (2.0-8.3); Neutrophils Percent Auto 61.3 % (45-73); Platelet Count 259 X10*3/uL (160-400); Red Blood Count 3.96 X10*6/uL (4.20-5.50); Red Cell Distribution Width 13.4 % (11.0-16.0); White Blood Count 6.9 X10*3/uL (4.8-10.8)
[2024-12-16 10:43] LABS: Alanine Aminotransferase 40 U/L (0-31); Albumin Level 3.8 g/dL (3.5-5.0); Alkaline Phosphatase 64 U/L (39-117); Anion Gap 11 (12-20); Aspartate Amino Transferase 30 U/L (5-31); Bilirubin Total 0.3 mg/dL (0.0-1.0); Blood Urea Nitrogen 6 mg/dL (9-16); Calcium 8.5 mg/dL (8.4-10.2); Carbon Dioxide 27 mmol/L (22-29); Chloride 107 mmol/L (96-108); Cholesterol 214 mg/dL (<200); Estimated Glomerular Filt Rate > 60; Glucose Fasting 87 mg/dL (60-99); HDL Cholesterol 62 mg/dL (>40); LDL Cholesterol Calculated 124 mg/dL (<100); Sodium 141 mmol/L (135-145); Total Protein 6.7 g/dL (6.5-8.0); Triglycerides 144 mg/dL (<150)
[2024-12-16 10:49] LABS: TSH reflex Free T4 3.14 uIU/mL (0.32-4.0)
[2024-12-16 10:55] LABS: B Type Natriuretic Peptide 36 pg/mL (<100)
[2024-12-16 10:59] LABS: Free T4 (Free Thyroxine) 0.91 ng/dL (0.71-1.85); Thyroid Stimulating Hormone 3.27 uIU/mL (0.32-4.0)
== END 2024-12-16 08:00 | disposition home or self-care (01) ==
LOC: HO.HMGCLDS 07:59
PROVIDERS: PCP Internal Medicine; Referring Provider Physician Assistant; Visit Provider Student in an Organized Health Care Education/Training Program
DX: R42 Dizziness and giddiness (principal); E89.0 Postprocedural hypothyroidism; R21 Rash and other nonspecific skin eruption; E04.2 Nontoxic multinodular goiter; E78.5 Hyperlipidemia, unspecified; Z00.00 Encounter for general adult medical examination without abnormal findings
CPT/HCPCS: 36415; 80053; 80061; 83880; 84439; 84443; 85025

== ENCOUNTER 2024-12-17 10:25 | Outpatient (AMB) | payer OTHER, SELFPAY ==
[2024-12-17 10:31] VITALS: BP 120/82; PULSE 73; TEMP 36.6; O2SAT 98; BMI 28.3
--- NOTE | 2024-12-17 10:31 | MHC.PC.OV ---
Vital Signs 12/17/24 10:31 Height 5 ft 7 in Weight 181 lb BMI 28.3 BP 120/82 Blood Pressure Location Lt brachial Position Sitting Pulse 73 Pulse Source Pulse Oximeter Temp 98 F Temp Source Oral Pulse Oximetry (%) 98 Oxygen Delivery Method Room Air Intake Visit Reasons: ekg, cardiology referral Intake Note: Pt is here today for a follow up visit after being seen in a walk in. Pt c.o dizziness swelling in her feet. Allergies No Known Allergies Allergy (Verified 12/17/24 10:48) Tobacco use date assessed: 11/04/24 Dental Screening Dental Screen Date: 11/04/24 HPI ekg, cardiology referral HPI Details Pt presents for the follow-up. She complains of lower extremities swelling and the end of the day after sitting at work for 8 hours. Patient denies chest pain shortness or breath but has not been physically active. Hyperlipidemia and hypothyroidism are controlled on current medications. [facility] Medical History Hypothyroidism Rash Annual physical exam Hyperlipidemia Hemorrhoids Lab test positive for detection of COVID-19 virus Back pain GERD (gastroesophageal reflux disease) Elevated cholesterol Bronchitis Asthma Surgical History Hx of partial thyroidectomy Hx of ultrasound guided needle biopsy H/O colonoscopy Family History Father No problems noted. Mother Skin cancer Maternal Grandmother Colon cancer Social History Housing: Condominium Alcohol intake: current Alcohol intake frequency: holidays/special occasions only Patient Tobacco Use Status: Former Tobacco user Years Smoked: 2 yrs e-Cigarette/Vaping Use: Never Used Second Hand Smoke Exposure: No service: No Current occupational status: employed Current occupation: [employer] [employer] Current occupational exposures/hazards: No Cognitive needs: No Hearing needs: No Vision needs: Yes Questionnaire Thrive Questionnaire Date Thrive assessed: 11/04/24 I am a: Patient What is your living situation today?: I have a steady place to live Within the past 12 months, did the food you bought not last and you didn't have the money to get more?: I choose not to answer this question Within the past 12 months, did you worry whether your food would run out before you got money to buy more?: I choose not to answer this question Do you have trouble paying for medicines?: No Do you have trouble getting transportation to medical appointments?: No Do you have trouble paying your heating and electricity bill?: No Do you have trouble taking care of your child, family member or friend?: No Do you have trouble with day-to-day activities such as bathing, preparing meals, shopping, managing finances, etc.?: No Are you currently unemployed and looking for a job?: No Are you interested in more education?: No Please select the resources that you would like help with: None Currently or been in a relationship where the following occur: No concerns reported THRIVE Score: 0 MARY-7 AMB Questionnaire MARY-7 Date MARY - 7 assessed: 11/04/24 Source: Developed by Drs. Edy Chua, Kaitlin Ferguson, Isaias Farfan and colleagues, with an educational mitchell from [employer]. Review of Systems Const All systems reviewed & are unremarkable except as noted in HPI and below Eyes Reports no additional complaints ENT Reports no additional complaints Card Reports no additional complaints Resp Reports no additional complaints GI Reports no additional complaints Reports no additional complaints Physical exam (Primary Care) Vital Signs: Last Vital Signs Temp 98 F 12/17/24 10:31 Pulse 73 12/17/24 10:31 BP 120/82 12/17/24 10:31 Pulse Ox 98 12/17/24 10:31 Oxygen Delivery Method Room Air 12/17/24 10:31 BMI result Body Mass Index 28.3 Tobacco/Smoking Status: Tobacco use Status Tobacco use date assessed 11/04/24 12/17/24 10:33 Patient Tobacco Use Status Former Tobacco user 12/17/24 10:33 e-Cigarette/Vaping Use Never Used 12/17/24 10:33 Thrive Assessment: Date of Thrive Assessment Date Thrive assessed 11/04/24 12/17/24 10:33 Currently or been in a relationship where the following occur: No concerns reported Const General: no acute distress HENMT Head: Yes normal to inspection Neck Neck: Yes supple Resp Effort & Inspection: normal respiratory effort Auscultation: clear to auscultation bilaterally Cardio Rhythm: regular rhythm Heart sounds: S1 normal heart sound present and S2 normal heart sound present GI Inspection: Yes normal to inspection Palpation (GI): Soft to palpation Percussion: Yes normal to percussion Auscultation: normal bowel sounds Coding Level of Care Code Est Pt Level 4 (59167) Diagnoses Bilateral lower extremity edema R60.0 Postoperative hypothyroidism E89.0 Hypothyroidism type: postoperative Hyperlipidemia E78.5 Assessment & Plan Assessment & Plan (1) Bilateral lower extremity edema: Code(s): R60.0 - Localized edema Category: Medical Plan: For the panel lower extremity edema patient was advised to elevate lower extremities wear compression stockings and walk during the day. EKG showed normal sinus rhythm no ST-T changes. (2) Hypothyroidism: Code(s): E03.9 - Hypothyroidism, unspecified Category: Medical Qualifiers: Hypothyroidism type: postoperative Qualified Code(s): E89.0 - Postprocedural hypothyroidism Plan: Continue levothyroxine (3) Hyperlipidemia: Code(s): E78.5 - Hyperlipidemia, unspecified Category: Medical Plan: Continue pravastatin Orders: Orders AMB EKG-In Office Today E78.5 - Hyperlipidemia, unspecified, E89.0 - Postprocedural hypothyroidism, R42 - Dizziness and giddiness
== END 2024-12-17 11:41 | disposition home or self-care (01) ==
LOC: HO.HMCC 10:26
PROVIDERS: PCP Internal Medicine; Visit Provider Internal Medicine
DX: R60.0 Localized edema (principal); E89.0 Postprocedural hypothyroidism; E78.5 Hyperlipidemia, unspecified

== ENCOUNTER → 2024-12-17 10:25 | Outpatient (BNVA) | payer OTHER, SELFPAY | PROVIDERS: PCP Internal Medicine; Visit Provider Internal Medicine ==

== ENCOUNTER 2025-01-12 15:29 | Outpatient (REF) | payer OTHER, SELFPAY ==
--- NOTE | ~2025-01-12 | US_ITS ---
EXAMINATION: US THYROID HISTORY: E04.2 - Nontoxic multinodular goiter TECHNIQUE: Real-time grayscale ultrasound imaging was performed and images were reviewed. COMPARISON: Comparison is made with the prior examination dated 10/02/2023. FINDINGS: SIZE: The right thyroid lobe is surgically absent. The left thyroid lobe measures 6.3 x 2.8 x 1.6 cm. The isthmus measures 5 mm. FLOW: Flow to the gland is normal. ECHOGENICITY: The echotexture of the gland is heterogeneous. NODULES: Again seen is a dominant nodule in the left thyroid lobe with imaging characteristics as detailed below: Nodule #: 1 Location: Left lower pole measuring 2.6 x 2.3 x 1.8 cm (previously 2.8 x 2.1 x 1.8 cm). Shape: Taller than wide (3 points) Margins: Smooth (0 points) Echotexture: Hypoechoic (2 points) Composition: Solid (2 points) Calcifications: None (0 points) Total points: 7 TIRADS: TR5: Highly suspicious. US/US thyroid IMPRESSION: Stable 2.6 x 2.3 x 1.8 cm left thyroid nodule. This was previously biopsied on 05/13/2024 with benign pathology results. ACR TI-RADS Guidelines TR1 (0 points): Benign, No follow-up or biopsy required TR2 (2 points): Not Suspicious, No biopsy or follow up indicated TR3 (3 points): Mildly Suspicious, FNA if >= 2.5 cm, Follow if >= 1.5 cm TR4 (4-6 points): Moderately Suspicious, FNA if >= 1.5 cm, Follow if >= 1.0 cm TR5 (>=7 points): Highly Suspicious, FNA if >= 1.0 cm, Follow if >= 0.5 cm Electronically signed by: Edy Aguilar MD 01/13/2025 07:28 AM EDT
== END 2025-01-12 15:30 | disposition home or self-care (01) ==
LOC: HO.HMGCX 15:29
PROVIDERS: PCP Internal Medicine; Visit Provider Student in an Organized Health Care Education/Training Program
DX: E04.2 Nontoxic multinodular goiter (principal)
CPT/HCPCS: 76536

== ENCOUNTER → 2025-01-12 15:30 | Outpatient (BNV) | payer OTHER, SELFPAY | PROVIDERS: PCP Internal Medicine; Visit Provider Radiology Diagnostic Radiology | DX: E04.1 Nontoxic single thyroid nodule (principal) | CPT/HCPCS: 76536 ==

== ENCOUNTER 2025-02-06 09:26 | Outpatient (REF) | payer OTHER, SELFPAY | END 2025-02-06 09:27 | disposition home or self-care (01) | LOC: HO.MAMMO 09:26 | PROVIDERS: PCP Internal Medicine; Visit Provider Internal Medicine | DX: Z12.31 Encounter for screening mammogram for malignant neoplasm of breast (principal) | CPT/HCPCS: 77063; 77067 ==

== ENCOUNTER → 2025-02-06 09:45 | Outpatient (BNV) | payer OTHER, SELFPAY | PROVIDERS: PCP Internal Medicine; Visit Provider Internal Medicine | DX: Z12.31 Encounter for screening mammogram for malignant neoplasm of breast (principal) | CPT/HCPCS: 77063; 77067 ==

== ENCOUNTER 2025-03-03 15:22 | Outpatient (AMB) | payer OTHER, SELFPAY ==
[2025-03-03 15:25] VITALS: BP 108/72; PULSE 74; O2SAT 97; BMI 28.9
--- NOTE | 2025-03-03 15:25 | MHC.OFFVIS ---
Vital Signs 03/03/25 15:25 Height 5 ft 7 in Weight 184 lb 4.903 oz BMI 28.9 BP 108/72 Blood Pressure Location Lt brachial Position Sitting Pulse 74 Pulse Source Pulse Oximeter Pulse Oximetry (%) 97 Oxygen Delivery Method Room Air Intake Visit Reasons: Biopsy f/u Intake Note: Patient present today for biopsy follow up. 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 HPi from prior visit Was initially diagnosed with multinodular thyroid many years ago, she does not recall exactly when. She did previously see an Disc Pad Plate Filler at [place]. She states she had a biopsy over 11 years ago, but does not recall which nodules were biopsied. She underwent FNA biopsy 06/28/[address] Andino of her RMP 4.0 cm and her Isthmus 1.8 cm thyroid nodules, both with benign (Lawn category II) cytology. She was noted at the time of biopsy to have a large heterogenous goiter, and was complaining of compressive symptoms. Discussion was held regarding surgical thyroidectomy to alleviate her symptoms. Status post robotic assisted right thoracoscopic resection of middle mediastinal goiter, robotic assisted right thoracoscopic resection of anterior mediastinal goiter with Dr. Nella Back and Dr. Gibson at [facility] 05/04. . Pathology report per chart review was benign on 75 mcg levothyroxine . Taking it appropriately and adherent. thyroid ultrasound 10/05 showed dominant left lower pole 2.8 cm nodule which had decreased in size compared to previous ultrasound. This is solid hypoechoic taller than wide. TR 5 category. Right thyroid absent. On 05/13/2024 patient underwent biopsy of the left lower pole nodule cytology benign, Lawn category 2. Patient currently denies heat or cold intolerance, diarrhea or constipation, hair loss, palpitation, anxiety, mood changes, low energy, changes in appearance of eyes or vision changes, tremors, increased diaphoresis or dry skin. ?Periods regular. Feels like she has gained 10 lbs but she has lost some before seems like she just gained it back. Patient currently endorses some difficulty swallowing but not too often. Denies pain on swallowing or voice changes or difficulty breathing. Her friend noticed the left side of her neck is more prominent. Patient denies any history of childhood neck radiation. Denies having ever used lithium, amiodarone or biotin supplements. Patient denies any family history of thyroid cancer or thyroid disease. Interval history Labs 12/16/2024: TSH 3.14, free T4 0.91 Continues on levothyroxine 75 mcg daily Ultrasound with thyroid 01/12/2025: She was stable size of the dominant left lower pole 2.6 cm nodule. Physical exam General: sitting comfortably in no acute distress HEENT: normocephalic/atraumatic, moist oral mucosa Neck: supple, palpable 2 cm nodule in the left lobe Cardiac: normal heart sounds Pulm: normal breath sounds B/L, no added breath sounds Abd: not distended, no tenderness Extremities: no edema, no signs of myxedema Laboratory Tests 12/16/24 08:40 TSH 3.14 Free T4 0.91 EXAMINATION: US THYROID 01/12/25 HISTORY: E04.2 - Nontoxic multinodular goiter TECHNIQUE: Real-time grayscale ultrasound imaging was performed and images were reviewed. COMPARISON: Comparison is made with the prior examination dated 10/02/2023. FINDINGS: SIZE: The right thyroid lobe is surgically absent. The left thyroid lobe measures 6.3 x 2.8 x 1.6 cm. The isthmus measures 5 mm. FLOW: Flow to the gland is normal. ECHOGENICITY: The echotexture of the gland is heterogeneous. NODULES: Again seen is a dominant nodule in the left thyroid lobe with imaging characteristics as detailed below: Nodule #: 1 Location: Left lower pole measuring 2.6 x 2.3 x 1.8 cm (previously 2.8 x 2.1 x 1.8 cm). Shape: Taller than wide (3 points) Margins: Smooth (0 points) Echotexture: Hypoechoic (2 points) Composition: Solid (2 points) Calcifications: None (0 points) Total points: 7 TIRADS: TR5: Highly suspicious. US/US thyroid IMPRESSION: Stable 2.6 x 2.3 x 1.8 cm left thyroid nodule. This was previously biopsied on 05/13/2024 with benign pathology results. thyroid ultrasound 10/05. Location: Left lower pole. Size: 2.8 x 2.1 x 1.8 cm, volume 5.5 mL. Previously: 3.5 x 2.2 x 2.0 cm, volume 7.9 mL. Nodule characteristics: Composition: Solid (2). Echogenicity: Hypoechoic (2). Shape: Taller than wide (3). Margins: Smooth (0). Echogenic Foci: None (0). ACR TI-RADS total points: 7 Previous: 10 ACR TI-RADS category: 5 Previous: 5 Significant change in size (>/= 20% in 2 dimensions and minimal increase of 2 mm or 50% or greater increase in volume): Decreased. Change in features: No. Change in ACR TI-RADS risk category: No. RIGHT THYROIDECTOMY BED: No recurrent mass. NODES: No lymphadenopathy is seen in the tissue surrounding the thyroid gland. US/US thyroid IMPRESSION: Status post right-sided thyroidectomy. Nodule in the left lobe of the thyroid has decreased in size when compared to the prior study. Based upon its current size and TI-RADS classification, biopsy would be indicated as this is category 5 and over 1 cm in size. Please correlate with past histories of biopsies and pathologic reports. [facility] Medical History Hypothyroidism Rash Annual physical exam Hyperlipidemia Hemorrhoids Lab test positive for detection of COVID-19 virus Back pain GERD (gastroesophageal reflux disease) Elevated cholesterol Bronchitis Asthma Surgical History Hx of partial thyroidectomy Hx of ultrasound guided needle biopsy H/O colonoscopy Family History Father No problems noted. Mother Skin cancer Maternal Grandmother Colon cancer Social History Housing: Condominium Alcohol intake: current Alcohol intake frequency: holidays/special occasions only Patient Tobacco Use Status: Former Tobacco user Years Smoked: 2 yrs e-Cigarette/Vaping Use: Never Used Second Hand Smoke Exposure: No service: No Current occupational status: employed Current occupation: [employer] [place] [employer] [employer] Current occupational exposures/hazards: No Cognitive needs: No Hearing needs: No Vision needs: Yes Physical Exam Vital Signs: Last Vital Signs Pulse 74 03/03/25 15:25 BP 108/72 03/03/25 15:25 Pulse Ox 97 03/03/25 15:25 Oxygen Delivery Method Room Air 03/03/25 15:25 BMI result Body Mass Index 28.9 Assessment & Plan Assessment & Plan (1) Multinodular thyroid: Comment: Status post R partial thyroidectomy and thoracoscopic resection of mediastinal medial and anterior goiter 05/04 , f/u with Endo Code(s): E04.2 - Nontoxic multinodular goiter Category: Medical Plan: Patient with no family history of thyroid cancer, with no personal history of head or neck radiation, who has a history of nontoxic multinodular goiter for many years with the original biopsies 11 years ago, we do not have records of these which were reportedly benign, who subsequently was seeing Dr. Andino, FNA 06/28/[address] Andino of her RMP 4.0 cm and her Isthmus 1.8 cm thyroid nodules, both with benign results, who was having some degree of compressive symptoms, with subsequent imaging revealing large substernal goiter status post robotic assisted right thoracoscopic resection of middle mediastinal goiter, robotic assisted right thoracoscopic resection of anterior mediastinal goiter with Dr. Nella Back and Dr. Gibson at [facility] 05/04. Pathology report per chart review was benign . She has a remnant left lobe of the thyroid with a dominant 2.8 cm nodule, which on most recent ultrasound from September 2023 appears solid, hypoechoic, taller than wide. This is TR 4 category, or based on shape high suspicion category per JABIER which falls into greater than 50% chance of malignancy warranting biopsy. The nodule does not appear very high-risk to me besides is shape, and given that she has had most of her thyroid removed with benign pathology, these are all reassuring. The nodule is also decreased in size. However it did criteria for FNA and I discussed with the patient that given that it does harbor significant risk for malignancy given high suspicious shaped, Underwent FNA of this nodule on 05/13/2024 with benign cytology, Lawn category 2. Repeat ultrasound done January 2025 showed stable size of the left dominant lower lobe 2.6 cm nodule. This is reassuring. She does have some degree of compressive symptoms though not very bothersome. TFTs from this year unremarkable. At this point we will plan to repeat an ultrasound in summer. I have told her that she should call us in summer to book her ultrasound of the thyroid as well as a follow up appointment after for summer. Patient verbalized understanding. Her primary care can continue to check her TSH and free T4 annually, and continue levothyroxine 75 mcg daily. Plan: -ultrasound thyroid to be repeated in summer with follow up after, patient will call in summer to make these appointments -primary care can check TSH and free T4 annually -continue levothyroxine 75 mcg daily (2) Hypothyroidism: Code(s): E03.9 - Hypothyroidism, unspecified Category: Medical Qualifiers: Hypothyroidism type: postoperative Qualified Code(s): E89.0 - Postprocedural hypothyroidism Plan: Patient with postoperative hypothyroidism, with TFTs from this year within normal range. She is biochemically euthyroid. Plan: -continue levothyroxine 75 mcg daily -primary care physician can repeat TFTs annually Plan See above Patient Instructions: in summer call our office to schedule ultrasound of the thyroid for summer plus an appointment with me after You can have your primary check your thyroid function next year with TSH and free t4 Continue levothyroxinr 75 mcg daily Coding Level of Care Code Est Pt Level 3 (48923) Diagnoses Multinodular thyroid E04.2 Postoperative hypothyroidism E89.0 Hypothyroidism type: postoperative
== END 2025-03-03 15:55 | disposition home or self-care (01) ==
LOC: HO.ENCR 15:23
PROVIDERS: PCP Internal Medicine; Visit Provider Student in an Organized Health Care Education/Training Program
DX: E04.2 Nontoxic multinodular goiter (principal); E89.0 Postprocedural hypothyroidism
CPT/HCPCS: 99213

== ENCOUNTER 2025-03-15 07:56 | Outpatient (AMB) | payer OTHER, SELFPAY ==
--- NOTE | 2025-03-15 08:23 | AM.OFFWIN_ITS ---
Intake Vital Signs 03/15/25 08:24 Height 5 ft 7 in Weight 185 lb BMI 29.0 BP 116/64 Blood Pressure Location Rt brachial Position Sitting Pulse 70 Pulse Source Pulse Oximeter Temp 97.9 F Temp Source Oral Pulse Oximetry (%) 97 Oxygen Delivery Method Room Air Intake Visit Reasons: EP-?kidney infection, rt foot swollen Intake Note: presents with right foot swelling on/off for months, tight feeling. Also c/o orange/yellow urine this morning after having urine frequency and low abdominal pressure yesterday. Patient Tobacco Use Status: Former Tobacco user Allergies No Known Allergies Allergy (Verified 03/15/25 08:36) Do you need a note to return to daycare/school/sports/work: Yes HPI HPI Comments History of Present Illness Details History of Present Illness - The patient is a 49-year-old female pr esenting with urinary urgency and foot swelling. - She experienced a sudden urge to urina te with minimal output, starting the previous day, and took [id number] medication for relief. - She has no pain with urination or freq uency. - Her urine was orange this am and she t hinks it was from the pills she took. - The patient reports cramping associate d with premenopausal symptoms, experiencing irregular menstrual cycles. - She reports swelling predominantly in the right foot, occasionally affecting the left, with a regular alcohol consumption pattern and inadequate hydration. - She has no skin changes, CP, SOB, abd pain, n/v/d. - She has no dizziness or weakness. Physical Exam General: Cooperative, healthy appearing, comfortable, no acute distress and well developed Orientation: Patient oriented x3 Limitations: No limitations Respiratory: Normal respiratory effort and able to speak in complete sentences. Clear to auscultation bilaterally Cardiovascular: Regular rate and rhythm. Normal S1 and S2 GI: Normal to inspection. Soft to palpation and nontender. No guarding or rebound tenderness noted. No CVA tenderness noted. Skin: No rashes or lesions noted Neuro: Patient oriented x3. Sensation is intact. Extremities: Swelling noted to both feet. No pitting noted. Patient was informed and verbally consented to the use of an ambient scribe for clinic note documentation during this visit. [facility] Medical History Hypothyroidism Rash Annual physical exam Hyperlipidemia Hemorrhoids Lab test positive for detection of COVID-19 virus Back pain GERD (gastroesophageal reflux disease) Elevated cholesterol Bronchitis Asthma Surgical History Hx of partial thyroidectomy Hx of ultrasound guided needle biopsy H/O colonoscopy Family History Father No problems noted. Mother Skin cancer Maternal Grandmother Colon cancer Social History Housing: Condominium Alcohol intake: current Alcohol intake frequency: holidays/special occasions only Patient Tobacco Use Status: Former Tobacco user Years Smoked: 2 yrs e-Cigarette/Vaping Use: Never Used Second Hand Smoke Exposure: No service: No Current occupational status: employed Current occupation: [employer] Current occupational exposures/hazards: No Cognitive needs: No Hearing needs: No Vision needs: Yes Review of Systems Const All systems reviewed & are unremarkable except as noted in HPI and below Physical Exam Vital Signs: Last Vital Signs Temp 97.9 F 03/15/25 08:24 Pulse 70 03/15/25 08:24 BP 116/64 03/15/25 08:24 Pulse Ox 97 03/15/25 08:24 Oxygen Delivery Method Room Air 03/15/25 08:24 BMI result Body Mass Index 29.0 Assessment & Plan Assessment & Plan (1) Foot swelling: Code(s): M79.89 - Other specified soft tissue disorders (2) Urinary urgency: Code(s): R39.15 - Urgency of urination Plan Most likely dependent edema UA in the office was negative Plan - Conduct urinalysis and urine culture to confirm urinary tract infection and guide treatment. - Perform blood tests to assess kidney and liver function due to alcohol consumption and edema. - Advise lifestyle modifications including reduced salt intake and increased hydration, especially during alcohol consumption. - Consider compression stockings for edema management if necessary. - follow up with PCP Orders: Orders TSH reflex Free T4 Today M79.89 - Other specified soft tissue disorders Urine Culture Today N39.0 - Urinary tract infection, site not specified Complete Blood Count Auto Diff Today M79.89 - Other specified soft tissue dis orders Comprehensive Met. Panel Today M79.89 - Other specified soft tissue disorders AMB Urinalysis Automated Today Z13.9 - Encounter for screening, unspecified Coding Level of Care Code Est Pt Level 4 (56412) Diagnoses Foot swelling M79.89 Urinary urgency R39.15
[2025-03-15 08:24] VITALS: BP 116/64; PULSE 70; TEMP 36.6; O2SAT 97; BMI 29.0
== END 2025-03-15 09:32 | disposition home or self-care (01) ==
PROVIDERS: PCP Internal Medicine; Visit Provider Physician Assistant Medical
DX: M79.89 Other specified soft tissue disorders (principal); R39.15 Urgency of urination; Z13.9 Encounter for screening, unspecified

== ENCOUNTER 2025-03-15 07:56 | Outpatient (REF) | payer OTHER, SELFPAY ==
[2025-03-15 10:29] LABS: MANUAL DIFF FLAG NO
[2025-03-15 10:36] LABS: Hematocrit 40.1 % (37.0-47.0); Hemoglobin 13.2 g/dl (12.0-16.0); Imm Gran Abs Auto 0.02 X10*3/uL (0.00-0.03); Imm Gran Pct Auto 0.3 % (0.0-0.4); Lymphocytes Absolute Auto 1.9 X10*3/uL (1.2-4.9); Mean Corpuscular HGB Conc 32.9 g/dl (31.0-35.0); Mean Corpuscular Hemoglobin 30.0 pg (27.0-33.0); Mean Corpuscular Volume 91.1 fL (80.0-98.0); NRBC Abs Auto 0.000 X10*3/uL (0.0-0.012); NRBC Pct Auto 0.0 /100WBC (0.0-0.2); Platelet Count 320 X10*3/uL (160-400); Red Blood Count 4.40 X10*6/uL (4.20-5.50); White Blood Count 7.7 X10*3/uL (4.8-10.8)
[2025-03-15 11:43] LABS: Alanine Aminotransferase 58 U/L (0-31); Albumin Level 4.3 g/dL (3.5-5.0); Alkaline Phosphatase 94 U/L (39-117); Anion Gap 10 (12-20); Aspartate Amino Transferase 42 U/L (5-31); Blood Urea Nitrogen 6 mg/dL (9-16); Calcium 8.9 mg/dL (8.4-10.2); Carbon Dioxide 29 mmol/L (22-29); Chloride 106 mmol/L (96-108); Estimated Glomerular Filt Rate > 60; Potassium 3.7 mmol/L (3.3-5.1); Sodium 141 mmol/L (135-145); Total Protein 7.6 g/dL (6.5-8.0)
== END 2025-03-15 07:57 | disposition home or self-care (01) ==
LOC: HO.HMGCLDS 07:56
PROVIDERS: PCP Internal Medicine; Visit Provider Physician Assistant Medical
DX: R39.15 Urgency of urination (principal); M79.89 Other specified soft tissue disorders; Z13.89 Encounter for screening for other disorder
CPT/HCPCS: 36415; 80053; 81003; 84443; 85025; 87086

== ENCOUNTER 2025-04-29 09:50 | Outpatient (AMB) | payer OTHER, SELFPAY ==
--- NOTE | 2025-04-29 10:03 | A.OFFPC_ITS ---
Vital Signs 04/29/25 10:04 Height 5 ft 7 in Weight 181 lb BMI 28.3 BP 118/78 Blood Pressure Location Lt brachial Position Sitting Respiration 18 Pulse 70 Pulse Source Pulse Oximeter Temp 98.3 F Temp Source Oral Pulse Oximetry (%) 98 Oxygen Delivery Method Room Air Intake Visit Reasons: follow up Intake Note: Pt is here today for a follow up visit after labs. Allergies No Known Allergies Allergy (Verified 04/29/25 10:07) Medication List - Last Reconciled 04/29/25 by Mikaela Connell MD albuterol sulfate 90 mcg/actuation 2 inhalations inhalation QID PRN cholecalciferol (vitamin D3) 50 mcg PO DAILY ibuprofen 600 mg PO Q8H PRN ketoconazole 2% 1 appl topical DAILY levothyroxine 75 mcg PO DAILY pravastatin 40 mg PO BEDTIME Tobacco use date assessed: 04/29/25 Dental Screening Dental Screen Date: 11/04/24 HPI follow up HPI Details Patient presents for the follow-up on hyperlipidemia and hypothyroidism stable on current medications. She complains of right foot rash for months. She has been using [id number] antifungal creams without relief. Patient is concerned because she had a blood work which showed borderline elevated liver function tests. Patient has been drinking alcohol almost daily and is cutting down. Patient is going on a cruise tomorrow. [facility], [facility] Medical History (Updated 04/29/25 @ 12:12 by Mikaela Connell MD) Onychomycosis Hypothyroidism Rash Annual physical exam Hyperlipidemia Hemorrhoids Lab test positive for detection of COVID-19 virus Back pain GERD (gastroesophageal reflux disease) Elevated cholesterol Bronchitis Asthma Surgical History Hx of partial thyroidectomy Hx of ultrasound guided needle biopsy H/O colonoscopy Family History Father No problems noted. Mother Skin cancer Maternal Grandmother Colon cancer Social History Housing: Condominium Alcohol intake: current Alcohol intake frequency: holidays/special occasions only Patient Tobacco Use Status: Former Tobacco user Years Smoked: 2 yrs e-Cigarette/Vaping Use: Never Used Second Hand Smoke Exposure: No service: No Current occupational status: employed Current occupation: [employer] Current occupational exposures/hazards: No Cognitive needs: No Hearing needs: No Vision needs: Yes Questionnaire PHQ-9 Over the last 2 weeks, how often have you been bothered by any of the following problems? 1. Little interest or pleasure in doing things: not at all 2. Feeling down, depressed, or hopeless: not at all 3. Trouble falling or staying asleep, or sleeping too much: not at all 4. Feeling tired or having little energy: not at all 5. Poor appetite or overeating: not at all 6. Feeling bad about yourself - or that you are a failure or have let yourself or your family down: not at all 7. Trouble concentrating on things, such as reading the newspaper or watching television: not at all 8. Moving or speaking so slowly that other people could have noticed. Or the opposite - being so fidgety or restless that you have been moving around a lot more than usual: not at all 9. Thoughts that you would be better off or of hurting yourself in some way : not at all Total score: 0 Depression Screening Interpretation: Negative Depression Screening Done: Yes Source: Developed by Drs. Edy Chua, Kaitlin Ferguson, Isaias Farfan and colleagues, with an educational mitchell from [employer]. Thrive Questionnaire Date Thrive assessed: 10/28/24 I am a: Patient What is your living situation today?: I have a steady place to live Within the past 12 months, did the food you bought not last and you didn't have the money to get more?: I choose not to answer this question Within the past 12 months, did you worry whether your food would run out before you got money to buy more?: I choose not to answer this question Do you have trouble paying for medicines?: No Do you have trouble getting transportation to medical appointments?: No Do you have trouble paying your heating and electricity bill?: No Do you have trouble taking care of your child, family member or friend?: No Do you have trouble with day-to-day activities such as bathing, preparing meals, shopping, managing finances, etc.?: No Are you currently unemployed and looking for a job?: No Are you interested in more education?: No Please select the resources that you would like help with: None Currently or been in a relationship where the following occur: No concerns reported THRIVE Score: 0 MARY-7 AMB Questionnaire MARY-7 Date MARY - 7 assessed: 11/04/24 Feeling nervous, anxious, or on edge: 0 = Not at all Not being able to stop or control worryin = Not at all Worrying too much about different things: 0 = Not at all Trouble relaxin = Not at all Being so restless that it is hard to sit still: 0 = Not at all Becoming easily annoyed or irritable: 0 = Not at all Feeling afraid as if something awful might happen: 0 = Not at all Total MARY-7 score (0-4 normal; 5-9 mild; 10-14 moderate; 15-21 severe): 0 Source: Developed by Drs. Edy Chua, Kaitlin Ferguson, Isaias Farfan and colleagues, with an educational mitchell from [employer]. Review of Systems Const All systems reviewed & are unremarkable except as noted in HPI and below Eyes Reports no additional complaints ENT Reports no additional complaints Card Reports no additional complaints Resp Reports no additional complaints GI Reports no additional complaints Physical exam (Primary Care) Vital Signs: Last Vital Signs Temp 98.3 F 04/29/25 10:04 Pulse 70 04/29/25 10:04 Resp 18 04/29/25 10:04 BP 118/78 04/29/25 10:04 Pulse Ox 98 04/29/25 10:04 Oxygen Delivery Method Room Air 04/29/25 10:04 BMI result Body Mass Index 28.3 Tobacco/Smoking Status: Tobacco use Status Tobacco use date assessed 04/29/25 04/29/25 10:10 Patient Tobacco Use Status Former Tobacco user 04/29/25 10:10 e-Cigarette/Vaping Use Never Used 04/29/25 10:10 PHQ-9: PHQ-9 Score PHQ-9: Total score 0 04/29/25 10:10 Depression Screening Interpretation: Negative Thrive Assessment: Date of Thrive Assessment Date Thrive assessed 10/28/24 04/29/25 10:10 Currently or been in a relationship where the following occur: No concerns reported Const General: no acute distress HENMT Head: Yes normal to inspection Ears: hearing grossly normal bilaterally Resp Effort & Inspection: normal respiratory effort Auscultation: clear to auscultation bilaterally Cardio Rhythm: regular rhythm Heart sounds: S1 normal heart sound present and S2 normal heart sound present GI Inspection: Yes normal to inspection Palpation (GI): Soft to palpation Percussion: Yes normal to percussion Auscultation: normal bowel sounds Extrem Other: Trace pitting edema of both feet bilaterally, erythematous papular rash on the right foot dorsum and between toes Coding Level of Care Code Est Pt Level 4 (53511) Diagnoses Edema R60.9 Elevated LFTs R79.89 Hyperlipidemia E78.5 Onychomycosis B35.1 Assessment & Plan Assessment & Plan (1) Edema: Code(s): R60.9 - Edema, unspecified Category: Medical Plan: For dependent edema patient was advised to elevate lower extremities decrease sodium intake and wear compression leg were when standing or sitting for long time. Obtain venous Doppler to evaluate for venous insufficiency (2) Elevated LFTs: Code(s): R7.89 - Other specified abnormal findings of blood chemistry Category: Medical Plan: Cutting down on alcohol intake, simple carbohydrates and avoidance of NSAIDs discussed with the patient. she will have a repeat blood test in 1 month (3) Hyperlipidemia: Code(s): E78.5 - Hyperlipidemia, unspecified Category: Medical Plan: Low-cholesterol diet discussed with the patient continue pravastatin check lipid profile (4) Onychomycosis: Comment: R foot Code(s): B35.1 - Tinea unguium Category: Medical Plan: Ketoconazole as prescribed and supportive care discussed with the patient Orders: Orders US abdomen limited Today R79.89 - Other specified abnormal findings of blood chemistry Comprehensive [place]. Panel Fast 1 Month E78.5 - Hyperlipidemia, unspecified, R79.89 - Other specified abnormal findings of blood chemistry Lipid Panel 1 Month E78.5 - Hyperlipidemia, unspecified, R79.89 - Other specified abnormal findings of blood chemistry Hepatitis B,C Profile 1 Month E78.5 - Hyperlipidemia, unspecified, R79.89 - Other specified abnormal findings of blood chemistry Vitamin B12 and Folate 1 Month E78.5 - Hyperlipidemia, unspecified, R79.89 - Other specified abnormal findings of blood chemistry US venous insuf bilat Today R60.9 - Edema, unspecified Complete Blood Count Auto Diff 1 Month E78.5 - Hyperlipidemia, unspecified, R79.89 - Other specified abnormal findings of blood chemistry Medications: New ketoconazole 2% 1 appl topical DAILY 60 grams 2RF
[2025-04-29 10:04] VITALS: BP 118/78; PULSE 70; RESP 18; TEMP 36.8; O2SAT 98; BMI 28.3
== END 2025-04-29 10:38 | disposition home or self-care (01) ==
LOC: HO.HMCC 09:50
PROVIDERS: PCP Internal Medicine; Visit Provider Internal Medicine
DX: R60.9 Edema, unspecified (principal); R79.89 Other specified abnormal findings of blood chemistry; E78.5 Hyperlipidemia, unspecified; B35.1 Tinea unguium

== ENCOUNTER 2025-06-11 13:19 | Outpatient (REF) | payer OTHER, SELFPAY ==
--- NOTE | ~2025-06-11 | US_ITS ---
EXAMINATION: US LOWER EXTREMITY VENOUS (REFLUX EXAM), BILATERAL CLINICAL INFORMATION: R60.9. Edema. COMPARISON: None. TECHNIQUE: Color flow triplex imaging and compression Doppler was performed to evaluate both the deep and the superficial systems bilaterally. To evaluate the superficial system, the examination was performed in the upright position. Color-flow Doppler ultrasound and compression ultrasound were utilized. In addition, maneuvers were utilized to demonstrate reflux. FINDINGS: 1. DEEP VENOUS ULTRASOUND OF THE RIGHT LOWER EXTREMITY: Common Femoral Vein: Compressible, normal respiratory variation and augmented flow. Femoral Vein: Compressible, normal color flow and augmentation. Popliteal Vein: Compressible, normal augmentation. Deep Reflux: 752 ms reflux in the common femoral vein. There is no evidence of a Solorio's cyst. 2. SUPERFICIAL ULTRASOUND WITH DOPPLER OF RIGHT LOWER EXTREMITY: GREAT SAPHENOUS VEIN: Saphenofemoral Junction: 0.6 cm; Reflux: 0 ms Proximal Thigh: 0.5 cm; Reflux: 0 ms Mid Thigh: 0.6 cm; Reflux: 912 ms Distal Thigh: 0.5 cm; Reflux: 0 ms At Knee: 0.4 cm; Reflux: 0 ms Proximal Calf: 0.3 cm; Reflux: 0 ms Mid Calf: 0.3 cm; Reflux: 1344 ms Distal Calf: 0.3 cm; Reflux: 0 ms DUPLICATED MEDIAL GREAT SAPHENOUS VEIN: Diameter: None imaged Reflux: NA DUPLICATED LATERAL GREAT SAPHENOUS VEIN: Diameter: 0.3 cm. Reflux: NA SMALL SAPHENOUS VEIN: Saphenopopliteal Junction: 0.3 cm; Reflux: 0 ms Proximal: 0.3 cm; Reflux: 0 ms Distal: 0.2 cm; Reflux: 0 ms VEIN OF GIACOMINI: Size: NA Reflux: NA PERFORATORS: Location: Proximal calf. Size: 0.3 cm. Reflux: 2412 ms. VARICOSITIES: Location: None imaged. Size: NA Reflux: NA 3. DEEP VENOUS ULTRASOUND OF THE LEFT LOWER EXTREMITY: Common Femoral Vein: Compressible, normal respiratory variation and augmented flow. Femoral Vein: Compressible, normal color flow and augmentation. Popliteal Vein: Compressible, normal augmentation. Deep Reflux: There is no evidence of reflux in the deep system in either the common femoral vein, superficial femoral or the popliteal vein. There is no evidence of a Solorio's cyst. 4. SUPERFICIAL ULTRASOUND WITH DOPPLER OF LEFT LOWER EXTREMITY: GREAT SAPHENOUS VEIN: Saphenofemoral Junction: 0.8 cm; Reflux: 0 ms Proximal Thigh: 0.5 cm; Reflux: 568 ms Mid Thigh: 0.5 cm; Reflux: 0 ms Distal Thigh: 0.6 cm; Reflux: 1344 ms At Knee: 0.6 cm; Reflux: 0 ms Proximal Calf: 0.3 cm; Reflux: 0 ms Mid Calf: 0.3 cm; Reflux: 0 ms Distal Calf: 0.4 cm; Reflux: 0 ms DUPLICATED MEDIAL GREAT SAPHENOUS VEIN: Diameter: 0.5-0.3 cm. Reflux: NA DUPLICATED LATERAL GREAT SAPHENOUS VEIN: Diameter: None imaged. Reflux: NA SMALL SAPHENOUS VEIN: Saphenopopliteal Junction: 0.3 cm; Reflux: 0 ms Proximal: 0.3 cm; Reflux: 0 ms Distal: 0.3 cm; Reflux: 0 ms VEIN OF GIACOMINI: Size: NA Reflux: NA PERFORATORS: Location: Distal calf. Size: 0.2 cm. Reflux: NA VARICOSITIES: Location: At the knee. Size: 0.4 cm. Reflux: NA US/US venous insuf bilat IMPRESSION: Right: Venous insufficiency, great saphenous vein in the right and midcalf. Reflux in the deep venous system, common femoral vein. Perforators with reflux at the proximal calf. Varices without reflux, proximal calf. Left: Venous insufficiency, great saphenous vein at the proximal and distal thigh. Perforators and varices without reflux. Electronically signed by: Chuy Aguilar MD 06/11/2025 02:28 PM EDT
== END 2025-06-11 13:20 | disposition home or self-care (01) ==
LOC: HO.US 13:19
PROVIDERS: PCP Internal Medicine; Visit Provider Internal Medicine
DX: R60.0 Localized edema (principal)
CPT/HCPCS: 93970

== ENCOUNTER → 2025-06-11 13:25 | Outpatient (BNV) | payer OTHER, SELFPAY | PROVIDERS: PCP Internal Medicine; Visit Provider Radiology Diagnostic Radiology | DX: R60.9 Edema, unspecified (principal) | CPT/HCPCS: 93970 ==

== ENCOUNTER 2025-06-19 12:28 | Outpatient (REF) | payer OTHER, SELFPAY ==
[2025-06-19 15:58] LABS: Resp Syncy Virus RNA Qual PCR NEGATIVE (Negative); SARS COV2 PCR INHOUSE NEGATIVE (Negative)
== END 2025-06-19 12:29 | disposition home or self-care (01) ==
LOC: HO.LNP 12:28
PROVIDERS: PCP Internal Medicine; Visit Provider Physician Assistant Medical
DX: R09.89 Other specified symptoms and signs involving the circulatory and respiratory systems (principal); J20.9 Acute bronchitis, unspecified
CPT/HCPCS: 87637

== ENCOUNTER 2025-06-19 12:28 | Outpatient (AMB) | payer OTHER, SELFPAY ==
[2025-06-19 12:46] VITALS: BP 116/74; PULSE 71; TEMP 36.7; O2SAT 98
--- NOTE | 2025-06-19 12:46 | MHC.OFFWIV ---
Intake Vital Signs 06/19/25 12:46 Height 5 ft 7 in BMI Reason not done Patient refused/unable BP 116/74 Blood Pressure Location Rt brachial Position Sitting Pulse 71 Pulse Source Pulse Oximeter Temp 98.0 F Temp Source Oral Pulse Oximetry (%) 98 Intake Visit Reasons: EP-Cough Patient Tobacco Use Status: Former Tobacco user Allergies No Known Allergies Allergy (Verified 06/19/25 12:46) Do you need a note to return to daycare/school/sports/work: No HPI HPI Comments History of Present Illness Details This is a 49-year-old female who presented to the walk-in clinic complaining of a cough times 2-3 days in the setting of viral URI symptoms x6 days. Patient states the cough is productive of clear sputum. She denies any fevers or chills. She does report a mild sore throat and throat irritation. She reports a history of mild intermittent asthma and states that she has been using her albuterol inhaler with mild relief. [facility] Medical History (Updated 04/29/25 @ 12:12 by Mikaela Connell MD) Onychomycosis Hypothyroidism Rash Annual physical exam Hyperlipidemia Hemorrhoids Lab test positive for detection of COVID-19 virus Back pain GERD (gastroesophageal reflux disease) Elevated cholesterol Bronchitis Asthma Surgical History Hx of partial thyroidectomy Hx of ultrasound guided needle biopsy H/O colonoscopy Family History Father No problems noted. 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 Current occupational exposures/hazards: No Cognitive needs: No Hearing needs: No Vision needs: Yes Review of Systems Const All systems reviewed & are unremarkable except as noted in HPI and below Reports no additional complaints Eyes Reports no additional complaints ENT Reports no additional complaints Card Reports no additional complaints Resp Reports no additional complaints GI Reports no additional complaints Reports no additional complaints Musc Reports no additional complaints Skin/Breast Reports system reviewed and no additional complaints, except as documented Neuro Reports no additional complaints Psych Reports no additional complaints Endo Reports no additional complaints Fernando/Lymph Reports no additional complaints Aller/Immun Reports no additional complaints Physical Exam Exam Exam: Vital signs reviewed. Constitutional: Non-toxic appearing. No acute distress. Well-developed and well-nourished. HEENT: Normocephalic and atraumatic. Tympanic membranes without erythema, edema, or bulging bilaterally. External auditory canals without erythema or edema bilaterally. Moist mucous membranes. No pharyngeal erythema or exudates. Skin: Warm and dry. No rashes or lesions noted. Neck: Full and painless range of motion. No cervical lymphadenopathy. Cardio: Regular rate and rhythm. No murmurs, gallops, or rubs. No lower extremity edema. No JVD. Pulmonary: No respiratory distress. No accessory muscle usage. Scant end-expiratory wheezing. Gastrointestinal: Soft, nontender, and nondistended in all 4 quadrants. Musculoskeletal: Normal range of motion in joints throughout the body. No deformity or other signs of injury. Neuro: Alert and oriented x4. Cranial nerves 2-12 grossly intact. No focal deficits appreciated. Psych: Normal mood and affect. Vital Signs: Last Vital Signs Temp 98.0 F 06/19/25 12:46 Pulse 71 06/19/25 12:46 BP 116/74 06/19/25 12:46 Pulse Ox 98 06/19/25 12:46 Assessment & Plan Assessment & Plan (1) Acute bronchitis: Code(s): J20.9 - Acute bronchitis, unspecified Qualifiers: Bronchitis organism: unspecified organism Qualified Code(s): J20.9 - Acute bronchitis, unspecified Plan This is a 49-year-old female who presented to the walk-in clinic complaining of a cough times 2-3 days in the setting of viral URI symptoms x6 days. On physical examination, she has scant end expiratory wheezing. History and physical most consistent with acute bronchitis likely in the setting of viral URI. Patient was given a prescription for p.o. prednisone 40 mg daily x5 days. Recommended symptomatic management including rest, increased fluids, advil/tylenol for pain/fever, and over the counter throat lozenges/decongestants. Patient advised to follow up here or go to the emergency room for worsening/persistent symptoms. Patient verbalized understanding and is agreeable with the plan. Orders: Orders SARS-CoV2/FLU/RSV Today R09.89 - Other specified symptoms and signs involving the circulatory and respiratory systems Medications: New prednisone 40 mg (2 x 20 mg) PO DAILY 10 tabs 0RF Coding Level of Care Code Est Pt Level 3 (72902) Diagnoses Acute bronchitis, unspecified organism J20.9 Bronchitis organism: unspecified organism
== END 2025-06-19 13:53 | disposition home or self-care (01) ==
LOC: HO.HMCWIC 12:28
PROVIDERS: PCP Internal Medicine; Visit Provider Physician Assistant Medical
DX: J20.9 Acute bronchitis, unspecified (principal)

== ENCOUNTER 2025-07-02 09:26 | Outpatient (REF) | payer OTHER, SELFPAY ==
--- NOTE | ~2025-07-02 | US_ITS ---
CLINICAL HISTORY: R79.89 - Other specified abnormal findings of blood chemistry US abdomen limited with color Doppler Comparison: None Findings: Visualized pancreas is normal. Tail obscured by bowel gas. Liver is normal in size and echogenic throughout. Right lobe length 14.8 cm. No focal hepatic masses. Common duct 2.3 mm diameter. Gallbladder is physiologically distended. No gallstones, sludge or wall abnormalities. No gallbladder wall thickening. No pericholecystic fluid. No sonographic Suárez sign. Right kidney measures, 10.3 cm in length. Normal cortical width and echotexture. No hydronephrosis calculus or mass. Impression: 1. Echogenic liver reflecting mild diffuse hepatic steatosis or diffuse hepatocellular disease. This document has been electronically signed by: Jose A Gomez MD on 07/02/2025 12:55:51
[2025-07-02 13:19] LABS: MANUAL DIFF FLAG NO
[2025-07-02 13:26] LABS: Hematocrit 40.8 % (37.0-47.0); Hemoglobin 13.2 g/dl (12.0-16.0); Imm Gran Abs Auto 0.03 X10*3/uL (0.00-0.03); Imm Gran Pct Auto 0.4 % (0.0-0.4); Lymphocytes Absolute Auto 1.9 X10*3/uL (1.2-4.9); Mean Corpuscular HGB Conc 32.4 g/dl (31.0-35.0); Mean Corpuscular Hemoglobin 29.7 pg (27.0-33.0); Mean Corpuscular Volume 91.7 fL (80.0-98.0); NRBC Abs Auto 0.000 X10*3/uL (0.0-0.012); NRBC Pct Auto 0.0 /100WBC (0.0-0.2); Platelet Count 290 X10*3/uL (160-400); Red Blood Count 4.45 X10*6/uL (4.20-5.50); White Blood Count 7.3 X10*3/uL (4.8-10.8)
[2025-07-02 13:46] LABS: Alanine Aminotransferase 58 U/L (0-31); Albumin Level 4.6 g/dL (3.5-5.0); Alkaline Phosphatase 86 U/L (39-117); Anion Gap 10 (12-20); Aspartate Amino Transferase 32 U/L (5-31); Blood Urea Nitrogen 8 mg/dL (9-16); Calcium 9.4 mg/dL (8.4-10.2); Carbon Dioxide 29 mmol/L (22-29); Chloride 108 mmol/L (96-108); Cholesterol 177 mg/dL (<200); Estimated Glomerular Filt Rate > 60; HDL Cholesterol 57 mg/dL (>40); Iron 74 mcg/dL (30-160); Percent Iron Saturation 28 % (15-50); Potassium 4.0 mmol/L (3.3-5.1); Sodium 143 mmol/L (135-145); Total Iron Binding Capacity 269 mcg/dL (228-428); Total Protein 7.8 g/dL (6.5-8.0); Triglycerides 87 mg/dL (<150); Unsaturated Iron Binding 195 ug/dL
[2025-07-02 14:17] LABS: Folate 11.3 ng/mL (> or = 4.0); Vitamin B12 573 pg/mL (200-900)
[2025-07-03 08:58] LABS: HBS Num1 0.86 mIU/mL (0-7.99); HBc Num1 0.06 S/CO (0.00-0.79); HBsAGNum1 0.45 S/CO (0.00-0.99); Hepatitis B Surface Antigen Negative (Negative); ~HepC Num1 0.10 S/CO (0.00-0.79); ~Hepatitis B Surface Antibody NONREACTIVE (Nonreactive); ~Hepatitis C Antibody Nonreactive (Nonreactive)
== END 2025-07-02 09:27 | disposition home or self-care (01) ==
LOC: HO.HMGCX 09:26
PROVIDERS: PCP Internal Medicine; Visit Provider Internal Medicine
DX: Z00.00 Encounter for general adult medical examination without abnormal findings (principal); R79.89 Other specified abnormal findings of blood chemistry; E78.5 Hyperlipidemia, unspecified; E89.0 Postprocedural hypothyroidism; E55.9 Vitamin D deficiency, unspecified; R42 Dizziness and giddiness
CPT/HCPCS: 36415; 76705; 80053; 80061; 82306; 82607; 82746; 83540; 85025; 86704; 86706; 86803; 87340

== ENCOUNTER → 2025-07-02 09:30 | Outpatient (BNV) | payer OTHER, SELFPAY | PROVIDERS: PCP Internal Medicine; Visit Provider Radiology Diagnostic Radiology | DX: R79.89 Other specified abnormal findings of blood chemistry (principal) | CPT/HCPCS: 76705 ==

== ENCOUNTER 2025-07-05 11:52 | Outpatient (AMB) | payer OTHER, SELFPAY ==
[2025-07-05 11:54] VITALS: BP 114/78; PULSE 75; RESP 16; TEMP 36.9; O2SAT 99; BMI 27.4
--- NOTE | 2025-07-05 11:54 | A.OFFPC_ITS ---
Vital Signs 07/05/25 11:54 Height 5 ft 7 in Weight 175 lb BMI 27.4 BP 114/78 Blood Pressure Location Rt brachial Position Sitting Respiration 16 Pulse 75 Pulse Source Pulse Oximeter Temp 98.4 F Temp Source Oral Pulse Oximetry (%) 99 Oxygen Delivery Method Room Air Intake Visit Reasons: follow up, results Intake Note: Pt is here today for a follow up visit. Allergies No Known Allergies Allergy (Verified 07/05/25 11:57) Medication List - Last Reconciled 07/05/25 by Mikaela Connell MD albuterol sulfate 90 mcg/actuation 2 inhalations inhalation QID PRN cholecalciferol (vitamin D3) 50 mcg PO DAILY ibuprofen 600 mg PO Q8H PRN ketoconazole 2% 1 appl topical DAILY levothyroxine 75 mcg PO DAILY pravastatin 40 mg PO BEDTIME prednisone 40 mg (2 x 20 mg) PO DAILY Tobacco use date assessed: 07/05/25 Dental Screening Dental Screen Date: 11/04/24 HPI follow up, results HPI Details Patient presents for the follow-up on hypothyroidism hyperlipidemia stable on current medications. Patient uses albuterol for chronic asthma once or twice a month PFSH Medical History Onychomycosis Hypothyroidism Rash Annual physical exam Hyperlipidemia Hemorrhoids Lab test positive for detection of COVID-19 virus Back pain GERD (gastroesophageal reflux disease) Elevated cholesterol Bronchitis Asthma Surgical History (Updated 07/05/25 @ 13:05 by Mikaela Connell MD) Hx of partial thyroidectomy Hx of ultrasound guided needle biopsy H/O colonoscopy Family History Father No problems noted. Mother Skin cancer Maternal Grandmother Colon cancer Social History Housing: Condominium Alcohol intake: current Alcohol intake frequency: holidays/special occasions only Patient Tobacco Use Status: Former Tobacco user Years Smoked: 2 yrs e-Cigarette/Vaping Use: Never Used Second Hand Smoke Exposure: No service: No Current occupational status: employed Current occupation: [employer] Current occupational exposures/hazards: No Cognitive needs: No Hearing needs: No Vision needs: Yes Questionnaire Thrive Questionnaire Date Thrive assessed: 10/28/24 I am a: Patient What is your living situation today?: I have a steady place to live Within the past 12 months, did the food you bought not last and you didn't have the money to get more?: I choose not to answer this question Within the past 12 months, did you worry whether your food would run out before you got money to buy more?: I choose not to answer this question Do you have trouble paying for medicines?: No Do you have trouble getting transportation to medical appointments?: No Do you have trouble paying your heating and electricity bill?: No Do you have trouble taking care of your child, family member or friend?: No Do you have trouble with day-to-day activities such as bathing, preparing meals, shopping, managing finances, etc.?: No Are you currently unemployed and looking for a job?: No Are you interested in more education?: No Please select the resources that you would like help with: None Currently or been in a relationship where the following occur: No concerns reported THRIVE Score: 0 MARY-7 AMB Questionnaire MARY-7 Date MARY - 7 assessed: 11/04/24 Source: Developed by Drs. Edy Chua, Kaitlin Ferguson, Isaias Farfan and colleagues, with an educational mitchell from [employer]. Review of Systems Const All systems reviewed & are unremarkable except as noted in HPI and below ENT Reports no additional complaints Card Reports no additional complaints Resp Reports no additional complaints GI Reports no additional complaints Reports no additional complaints Physical exam (Primary Care) Vital Signs: Last Vital Signs Temp 98.4 F 07/05/25 11:54 Pulse 75 07/05/25 11:54 Resp 16 07/05/25 11:54 BP 114/78 07/05/25 11:54 Pulse Ox 99 07/05/25 11:54 Oxygen Delivery Method Room Air 07/05/25 11:54 BMI result Body Mass Index 27.4 Tobacco/Smoking Status: Tobacco use Status Tobacco use date assessed 07/05/25 07/05/25 12:00 Patient Tobacco Use Status Former Tobacco user 07/05/25 11:54 e-Cigarette/Vaping Use Never Used 07/05/25 11:54 Thrive Assessment: Date of Thrive Assessment Date Thrive assessed 10/28/24 07/05/25 11:54 Currently or been in a relationship where the following occur: No concerns reported Const General: no acute distress HENMT Throat: Yes posterior oropharynx normal Neck Neck: Yes supple Resp Effort & Inspection: normal respiratory effort Auscultation: clear to auscultation bilaterally Cardio Rhythm: regular rhythm Heart sounds: S1 normal heart sound present and S2 normal heart sound present GI Inspection: Yes normal to inspection Palpation (GI): Soft to palpation Coding Level of Care Code Est Pt Level 4 (72965) Diagnoses H/O colonoscopy Z98.890 Assessment & Plan Assessment & Plan (1) H/O colonoscopy: Comment: 2017, nl 2019 , needs q 5yrs, Fhx of colon ca Code(s): Z98.890 - Other specified postprocedural states Category: Surgical Plan: Patient is overdue for repeat colonoscopy will be referred to GI Orders: Referrals Gastroenterology Referral Z98.890 - Other specified postprocedural states
== END 2025-07-05 14:57 | disposition home or self-care (01) ==
LOC: HO.HMCC 11:53
PROVIDERS: PCP Internal Medicine; Visit Provider Internal Medicine
DX: Z98.890 Other specified postprocedural states (principal)